=== PATIENT | female | born 1975 | race Caucasian/White ===

== ENCOUNTER 2016-03-12 08:30 | Emergency (ER) | payer OTHER ==
[~2016-03-12 08:30] MED LIST: ACET50TA PO; IBUP60TA PO; TUMS500C PO
[2016-03-12 09:42] LABS: MEAN CORPUSCULAR HEMOGLOBIN 30.5 pg (27.0-33.0); MEAN CORPUSCULAR HGB CONC 33.4 g/dl (32.0-36.5); MEAN CORPUSCULAR VOLUME 91.3 fl (80.0-96.0); RED CELL DISTRIBUTION WIDTH 12.4 % (11.5-14.5); WHITE BLOOD COUNT 9.7 K/mm3 (4.0-10.0)
--- NOTE | 2016-03-12 10:15 | REP ---
PELVIC ULTRASOUND: 03/12/2016 Performed transabdominally and transvaginally. INDICATION: Vaginal bleeding for 8 days, history of left-sided ectopic. Date of last menstrual period: " in January". The patient is G6, P3, one miscarriage, one left-sided ectopic. The uterus measures 7.8 x 4.1 x 5.6 cm. Endometrium 15 mm in thickness. There is no intrauterine gestational sac, pole or yolk sac at this time. The endometrium is thickened 15 mm in depth. The right ovary measures 3.6 x 2.6 x 3.2 cm and contains a 1.4 cm hypoechoic hemorrhagic follicle. The left ovary measures 2.9 x 2.1 x 2.9 cm and contains a few small follicles. Perfusion is noted to the bilateral ovaries. There are no adnexal masses identified. There is no free fluid in the cul-de-sac. IMPRESSION: Endometrium is thickened measuring 15 mm in depth. There is no intrauterine gestational sac or pole. Differential diagnosis at this time includes early intrauterine , missed ; cannot exclude ectopic . The patient states a home test was positive, however, the serum beta hCG was not drawn at the time of exam. Recommend correlation with serial Quantitative BHCG and follow up pelvic Ultrasound to insure a viable IUP. Hemorrhagic 1.4 cm dominant right ovarian follicle. Unremarkable left ovary. No ovarian torsion bilaterally. MTDD
--- NOTE | 2016-03-12 12:27 | EDDOCDS ---
Physician Documentation [facility] Name: Kelli Zhang Age: 40 yrs Sex: Female : 1975 Arrival Date: 03/12/2016 Time: 08:30 Bed 7 Private MD: Disposition: 03/12/16 12:00 Discharged to Home/Self Care. Impression: Threatened . - Condition is Stable. - Discharge Instructions: Threatened Miscarriage, Threatened Miscarriage, [id number]. - Medication Reconciliation, Local Pharmacy Hours form. - Follow up: Yves Cabrera; When: Call to arrange an appointment. - Problem is new. - Symptoms are unchanged. - Notes: return for vaginal bleeding saturating more than one pad per hour, increasing abdominal pain, worsening symptoms or other concerns Historical: - Allergies: no known allergies; - Home Meds: 1. none - PMHx: none; - PSHx: LEEP Procedure; - Social history: Smoking status: Patient uses tobacco products, light tobacco smoker. No barriers to communication noted, The patient speaks fluent [place], Speaks appropriately for age. - Family history: Not pertinent. - : The pt / caregiver states he / she is not on anticoagulants. Home medication list is obtained from the patient. - Exposure Risk Screening:: None identified. 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 8 in. (172.72 cm) (R); Pain 4/10; 11:39 BP 103 / 71; Pulse 62; Resp 18; Temp 99.0; Pulse Ox 99% on R/A; Pain 4/10; rn1 12:22 BP 120 / 75; Pulse 75; Resp 16; Temp 98.4; Pulse Ox 97% on R/A; Pain 5/10; jf3 08:38 Body Mass Index 29.65 (88.45 kg, 172.72 cm) mlb1 MDM: 08:49 Set up pelvic ordered. sd1 08:49 CBC Ordered. EDMS 08:49 Hcg, Serum Quantitative Ordered. EDMS 08:49 GC & Chlamydia Amplification Ordered. EDMS 08:49 Wet Prep Ordered. EDMS 08:49 Type & Screen Ordered. EDMS 08:56 US 1st trimester Ordered. EDMS 09:23 TRANSVAGINAL US Ordered. EDMS 09:23 DUPLEX SCAN LIMITED (DOPPLER) Ordered. EDMS 10:01 Financial registration complete. lg 10:02 [facility] Payment Agreement was scanned into [employer] and attached to record. lg 10:44 CBC Reviewed. sd1 10:44 Hcg, Serum Quantitative Reviewed. sd1 10:44 US 1st trimester Reviewed. sd1 11:00 -RhoGAM Ultra-Filtered Plus 300 mcg IM once ordered. sd1 11:01 Draw Rhogam Ordered. EDMS 11:05 Type & Screen Reviewed. sd1 Administered Medications: 11:26 Drug: -RhoGAM Ultra-Filtered Plus 300 mcg [RhoGAM Ultra-Filtered PLUS 1,500 unit (300 jf3 mcg) intramuscular syringe (300 mcg)] Route: IM; Site: right deltoid; Signatures: Dispatcher [employer] EDND Frieda Burch MD MD sd1 [address], Chava Reg lg Lasha Haas, RN RN mlb1 Milla Aranda,ANDREW RN kc3 Boby Brownlee,RN RN jf3 The chart was reviewed and I authenticate all verbal orders and agree with the evaluation and treatment provided.Attachments: 10:02 [facility] Payment Agreement lg MTDD
--- NOTE | 2016-03-12 12:27 | EDDOCDS ---
Nurse's Notes [facility] Name: Kelli Zhang Age: 40 yrs Sex: Female : 1975 Arrival Date: 03/12/2016 Time: 08:30 Bed 7 Private MD: Diagnosis: Threatened Presentation: 03/12 08:36 Presenting complaint: Patient states: Positive test at home Wednesday, mlb1 cramping and bleeding began 8 days ago. Risk factors: The patient reports no loss of conciousness prior to arrival. This patient has not had a hysterectomy. This patient has not begun menopause. Adult Sepsis Screening: The patient does not have new or worsening altered mentation. Patient's respiratory rate is less than 22. Systolic blood pressure is greater than 100. Patient has a qSOFA score of 0- Negative Sepsis Screen. Suicide/Homicide risk assessment- the patient denies having any suicidal and/or homicidal ideations and does not present with any other emotional, behavioral or mental health complaints. Status: Patient is not a customer services manager or dependent. Transition of care: patient was not received from another setting of care. 08:36 Acuity: ALYSE Level 3 mlb1 08:36 Method Of Arrival: Walkin/Carried/Asstd mlb1 Triage Assessment: 08:38 General: Appears in no apparent distress, Behavior is appropriate for age, cooperative. mlb1 Pain: Location: suprapubic area Pain currently is 4 out of 10 on a pain scale. Quality of pain is described as crampy. Pt Declines HIV testing. : Reports vaginal bleeding that is light flow. 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 none - PMHx: none; - PSHx: LEEP Procedure; - Social history: Smoking status: Patient uses tobacco products, light tobacco smoker. No barriers to communication noted, The patient speaks fluent Mauritian, Speaks appropriately for age. - Family history: Not pertinent. - : The pt / caregiver states he / she is not on anticoagulants. Home medication list is obtained from the patient. - Exposure Risk Screening:: None identified. Screenin:05 Screening information is obtained from the patient. Fall risk: No risks identified. kc3 Assistance ADL's: requires no assistance with activities of daily living. Abuse/DV Screen: The patient / caregiver reports he/she is: not in a situation that causes fear, pain or injury. Nutritional screening: No deficits noted. Advance Directives: Currently, there is no health care proxy. home support is adequate. Assessment: 09:20 General: Appears in no apparent distress, comfortable, Behavior is appropriate for age, kc3 cooperative. Neurological: Level of Consciousness is awake, alert, obeys commands, Oriented to person, place, time. Respiratory: Airway is patent Respiratory effort is even, unlabored. : Reports cramping vaginal bleeding that is bright red moderate flow. Derm: Skin is pink, warm & dry. 11:02 General: Appears in no apparent distress, Behavior is appropriate for age. Respiratory: jjr No deficits noted. : Vaginal discharge is bloody. Derm: No deficits noted. 11:35 Adult Sepsis Screening: The patient does not have new or worsening altered mentation. jf3 Patient's respiratory rate is less than 22. Systolic blood pressure is greater than 100. Patient has a qSOFA score of 0- Negative Sepsis Screen. General: Appears in no apparent distress, comfortable, Behavior is appropriate for age, cooperative. Pain: Location: suprapubic area Pain currently is 4 out of 10 on a pain scale. Neurological: Level of Consciousness is awake, alert, Oriented to person, place, time. Cardiovascular: Capillary refill < 3 seconds Heart tones S1 S2 present Chest pain is denied. Respiratory: Airway is patent Respiratory effort is even, unlabored, Respiratory pattern is regular, symmetrical, Breath sounds are clear bilaterally. Respiratory: Denies shortness of breath at rest. GI: Abdomen is non- distended Bowel sounds present X 4 quads. Abd is soft and non tender X 4 quads. Denies diarrhea, nausea, vomiting. Derm: Skin is pink, warm & dry. 12:25 General: Appears in no apparent distress, comfortable, Behavior is appropriate for age, jf3 cooperative. Pain: Pain currently is 5 out of 10 on a pain scale. Neurological: Level of Consciousness is awake, alert, Oriented to person, place, time. Cardiovascular: Capillary refill < 3 seconds. Respiratory: Airway is patent Respiratory effort is even, unlabored, Respiratory pattern is regular, symmetrical. Derm: Skin is pink, warm & dry. Vital Signs: 08:38 BP 128 / 79; Pulse 80; Resp 16; Temp 97.6(TE); Pulse Ox 99% on R/A; Weight 88.45 kg mlb1 (R); Height 5 ft. 8 in. (172.72 cm) (R); Pain 4/10; 11:39 BP 103 / 71; Pulse 62; Resp 18; Temp 99.0; Pulse Ox 99% on R/A; Pain 4/10; rn1 12:22 BP 120 / 75; Pulse 75; Resp 16; Temp 98.4; Pulse Ox 97% on R/A; Pain 5/10; jf3 08:38 Body Mass Index 29.65 (88.45 kg, 172.72 cm) mlb1 Vitals: 08:38 Log In Time: March 12, 2016 at 08:29. mlb1 ED Course: 08:31 [address] Reg. lg 08:31 Patient moved to Waiting lg 08:36 Patient visited by Lasha Haas RN. mlb1 08:37 Triage Initiated mlb1 08:42 Patient moved to 7 mlb1 08:48 Frieda Burch MD is Attending Physician. sd1 08:49 Patient visited by Frieda Burch MD. sd1 09:03 Patient moved to Ultrasound am10 09:19 Patient moved to 7 kc3 09:20 Patient visited by Milla Aranda RN. kc3 09:41 Patient visited by Milla Aranda RN. kc3 09:41 Inserted saline lock: 20 gauge in right antecubital area and blood collected. The kc3 patient tolerated the procedure well. Labs drawn. (by ED staff). Sent per order to lab. 09:58 Patient name changed from Kelli\\S\\Alka\\S\\Zhang\\S\\ to Kelli\\S\\A\\S\\Zhang. EDMS 10:02 [facility] Payment Agreement was scanned into [employer] and attached to record. lg 10:06 The patient / caregiver is instructed regarding the plan of care and ED course. kc3 10:07 Patient visited by Milla Aranda,ANDREW. kc3 10:17 Patient visited by Esperanza Majano,ANDREW. ead 10:33 US 1st trimester Returned. EDMS 11:02 Wet Prep Sent. jjr 11:02 GC & Chlamydia Amplification Sent. jjr 11:02 Assist provider with pelvic exam: Set up pelvic tray. Specimens sent to lab. Performed jjr by Frieda Burch MD Patient tolerated well. 11:03 Patient visited by Maritza Bhatia RN. jjr 11:05 Draw Rhogam Sent. jf3 11:30 Patient visited by Bonilla Holcomb PCA. jlf 11:59 Yves Cabrera MD is Referral Physician. sd1 12:22 Discontinued IV lock intact, bleeding controlled, pressure dressing applied, No jf3 redness/swelling at site. Administered Medications: 11:26 Drug: -RhoGAM Ultra-Filtered Plus 300 mcg [RhoGAM Ultra-Filtered PLUS 1,500 unit (300 jf3 mcg) intramuscular syringe (300 mcg)] Route: IM; Site: right deltoid; Order Results: Lab Order: CBC; SPEC'M 03/12/16 09:22 Test: WHITE BLOOD COUNT; Value: 9.7; Range: 4.0-10.0; Units: K/mm3; Status: F Test: RED BLOOD COUNT; Value: 4.34; Range: 4.00-5.40; Units: M/mm3; Status: F Test: HEMOGLOBIN; Value: 13.2; Range: 12.0-16.0; Units: g/dl; Status: F Test: HEMATOCRIT; Value: 39.6; Range: 36.0-47.0; Units: %; Status: F Test: MEAN CORPUSCULAR VOLUME; Value: 91.3; Range: 80.0-96.0; Units: fl; Status: F Test: MEAN CORPUSCULAR HEMOGLOBIN; Value: 30.5; Range: 27.0-33.0; Units: pg; Status: F Test: MEAN CORPUSCULAR HGB CONC; Value: 33.4; Range: 32.0-36.5; Units: g/dl; Status: F Test: RED CELL DISTRIBUTION WIDTH; Value: 12.4; Range: 11.5-14.5; Units: %; Status: F Test: PLATELET COUNT, AUTOMATED; Value: 337; Range: 150-450; Units: k/mm3; Status: F Lab Order: Type & Screen; SPEC'M 03/12/16 10:16 Test: BLOOD TYPE; Value: A NEG; Status: F Test: AB SCREEN (INDIRECT FRANK)GEL; Value: NEGATIVE; Status: F Lab Order: Hcg, Serum Quantitative; SPEC'M 03/12/16 09:22 Test: HCG, SERUM QUANTITATIVE; Value: 289; Units: MIU/ML; Status: F Test Note: ; GESTATIONAL AGE APPROXIMATE HCG RANGE (MIU/ML) 0.2-1 WEEK 5-50 1-2 WEEKS 50-500 2-3 WEEKS 100-5,000 3-4 WEEKS 500-10,000 4-5 WEEKS 1,000-50,000 5-6 WEEKS 10,000-100,000 6-8 WEEKS 15,000-200,000 2-3 MONTHS 10,000-100,000 NON FEMALES LESS THAN 3.0 Patient samples may contain human heterophilic antibodies that could react with immunoassays to give falsely elevated or depressed results. This assay has been designed to minimize interference from heterophilic antibodies. Elevated hCG levels have also been associated with trophoblastic disease and nontrophoblastic neoplasms. The possibility of having these diseases should be considered before a diagnosis of is made. This test is not intended for use as a surrogate marker for aiding in the diagnosis or monitoring the treatment of cancer patients. Siemens Capriza methodology. Lab Order: Wet Prep; SPEC'M 03/12/16 11:00 Test: WET PREP; Value: WET PREP RESULT; Status: F Test: WET PREP; Value: MODERATE EPITHELIAL CELLS PRESENT; Status: F Test: WET PREP; Value: MODERATE RBC; Status: F Test: WET PREP; Value: FEW WBC; Status: F Test: WET PREP; Value: MANY LONG RODS PRESENT; Status: F Radiology Order: US 1st trimester Test: US 1st trimester REASON FOR EXAMINATION: VB LLQ pain h/o ectopic; ; PELVIC ULTRASOUND: 03/12/2016; ; Performed transabdominally and transvaginally.; ; INDICATION: Vaginal bleeding for 8 days, history of left-sided ectopic.; ; Date of last menstrual period: " in January". The patient is G6, P3, one; miscarriage, one left-sided ectopic.; ; The uterus measures 7.8 x 4.1 x 5.6 cm. Endometrium 15 mm in thickness. There is; no intrauterine gestational sac, pole or yolk sac at this time. The; endometrium is thickened 15 mm in depth.; ; The right ovary measures 3.6 x 2.6 x 3.2 cm and contains a 1.4 cm hypoechoic; hemorrhagic follicle. The left ovary measures 2.9 x 2.1 x 2.9 cm and contains a; few small follicles. Perfusion is noted to the bilateral ovaries.; ; There are no adnexal masses identified. There is no free fluid in the; cul-de-sac.; ; IMPRESSION:; Endometrium is thickened measuring 15 mm in depth. There is no intrauterine; gestational sac or pole. Differential diagnosis at this time includes early; intrauterine , missed ; cannot exclude ectopic . The; patient states a home test was positive, however, the serum beta hCG; was not drawn at the time of exam.; ; Hemorrhagic 1.4 cm dominant right ovarian follicle. Unremarkable left ovary. No; ovarian torsion bilaterally.; ; ; ; Unreviewed; Outcome: 10:06 Ultrasound Study completed. kc3 12:00 Discharge ordered by Provider. sd1 12:26 Discharge Assessment: Patient awake, alert and oriented x 3. No cognitive and/or jf3 functional deficits noted. Patient verbalized understanding of disposition instructions. patient administered narcotics - no. The following High Risk Discharge criteria are identified: None. Discharged to home ambulatory. Condition: good. Discharge instructions given to patient, Instructed on discharge instructions, follow up and referral plans. Demonstrated understanding of instructions, Pt was receptive of discharge instructions/ teaching. Property :Personal belongings accompany Pt. 12:26 Patient left the ED. jf3 Signatures: Dispatcher [employer] EDMA Frieda Burch MD MD sd1 [address], Chava Reg Lasha Gordon, RN RN mlb1 Gini Feldman am10 Maritza Bhatia, RN RN Bonilla Maravilla, MONICA THERMO CEMENTING FOLDER OPERATOR jlf Esperanza Majano,RN RN Gareth Sarmiento rn1 Milla Aranda,ANDREW RN kc3 Boby Brownlee,RN RN jf3 MTDD
--- NOTE | 2016-03-14 13:28 | EDDOCDS ---
Nurse's Notes [facility] Name: Kelli Zhang Age: 40 yrs Sex: Female : 1975 Arrival Date: 03/12/2016 Time: 08:30 Bed 7 Private MD: Diagnosis: Threatened Presentation: 03/12 08:36 Presenting complaint: Patient states: Positive test at home Wednesday, mlb1 cramping and bleeding began 8 days ago. Risk factors: The patient reports no loss of conciousness prior to arrival. This patient has not had a hysterectomy. This patient has not begun menopause. Adult Sepsis Screening: The patient does not have new or worsening altered mentation. Patient's respiratory rate is less than 22. Systolic blood pressure is greater than 100. Patient has a qSOFA score of 0- Negative Sepsis Screen. Suicide/Homicide risk assessment- the patient denies having any suicidal and/or homicidal ideations and does not present with any other emotional, behavioral or mental health complaints. Status: Patient is not a financial services technician or dependent. Transition of care: patient was not received from another setting of care. 08:36 Acuity: ALYSE Level 3 mlb1 08:36 Method Of Arrival: Walkin/Carried/Asstd mlb1 Triage Assessment: 08:38 General: Appears in no apparent distress, Behavior is appropriate for age, cooperative. mlb1 Pain: Location: suprapubic area Pain currently is 4 out of 10 on a pain scale. Quality of pain is described as crampy. Pt Declines HIV testing. : Reports vaginal bleeding that is light flow. 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 none - PMHx: none; - PSHx: LEEP Procedure; - Social history: Smoking status: Patient uses tobacco products, light tobacco smoker. No barriers to communication noted, The patient speaks fluent Danish, Speaks appropriately for age. - Family history: Not pertinent. - : The pt / caregiver states he / she is not on anticoagulants. Home medication list is obtained from the patient. - Exposure Risk Screening:: None identified. Screenin:05 Screening information is obtained from the patient. Fall risk: No risks identified. kc3 Assistance ADL's: requires no assistance with activities of daily living. Abuse/DV Screen: The patient / caregiver reports he/she is: not in a situation that causes fear, pain or injury. Nutritional screening: No deficits noted. Advance Directives: Currently, there is no health care proxy. home support is adequate. Assessment: 09:20 General: Appears in no apparent distress, comfortable, Behavior is appropriate for age, kc3 cooperative. Neurological: Level of Consciousness is awake, alert, obeys commands, Oriented to person, place, time. Respiratory: Airway is patent Respiratory effort is even, unlabored. : Reports cramping vaginal bleeding that is bright red moderate flow. Derm: Skin is pink, warm & dry. 11:02 General: Appears in no apparent distress, Behavior is appropriate for age. Respiratory: jjr No deficits noted. : Vaginal discharge is bloody. Derm: No deficits noted. 11:35 Adult Sepsis Screening: The patient does not have new or worsening altered mentation. jf3 Patient's respiratory rate is less than 22. Systolic blood pressure is greater than 100. Patient has a qSOFA score of 0- Negative Sepsis Screen. General: Appears in no apparent distress, comfortable, Behavior is appropriate for age, cooperative. Pain: Location: suprapubic area Pain currently is 4 out of 10 on a pain scale. Neurological: Level of Consciousness is awake, alert, Oriented to person, place, time. Cardiovascular: Capillary refill < 3 seconds Heart tones S1 S2 present Chest pain is denied. Respiratory: Airway is patent Respiratory effort is even, unlabored, Respiratory pattern is regular, symmetrical, Breath sounds are clear bilaterally. Respiratory: Denies shortness of breath at rest. GI: Abdomen is non- distended Bowel sounds present X 4 quads. Abd is soft and non tender X 4 quads. Denies diarrhea, nausea, vomiting. Derm: Skin is pink, warm & dry. 12:25 General: Appears in no apparent distress, comfortable, Behavior is appropriate for age, jf3 cooperative. Pain: Pain currently is 5 out of 10 on a pain scale. Neurological: Level of Consciousness is awake, alert, Oriented to person, place, time. Cardiovascular: Capillary refill < 3 seconds. Respiratory: Airway is patent Respiratory effort is even, unlabored, Respiratory pattern is regular, symmetrical. Derm: Skin is pink, warm & dry. Vital Signs: 08:38 BP 128 / 79; Pulse 80; Resp 16; Temp 97.6(TE); Pulse Ox 99% on R/A; Weight 88.45 kg mlb1 (R); Height 5 ft. 8 in. (172.72 cm) (R); Pain 4/10; 11:39 BP 103 / 71; Pulse 62; Resp 18; Temp 99.0; Pulse Ox 99% on R/A; Pain 4/10; rn1 12:22 BP 120 / 75; Pulse 75; Resp 16; Temp 98.4; Pulse Ox 97% on R/A; Pain 5/10; jf3 08:38 Body Mass Index 29.65 (88.45 kg, 172.72 cm) mlb1 Vitals: 08:38 Log In Time: March 12, 2016 at 08:29. mlb1 ED Course: 08:31 [address]a [address] Reg. lg 08:31 Patient moved to Waiting lg 08:36 Patient visited by Lasha Haas RN. mlb1 08:37 Triage Initiated mlb1 08:42 Patient moved to 7 mlb1 08:48 Frieda Burch MD is Attending Physician. sd1 08:49 Patient visited by Frieda Burch MD. sd1 09:03 Patient moved to Ultrasound am10 09:19 Patient moved to 7 kc3 09:20 Patient visited by Milla Aranda RN. kc3 09:41 Patient visited by Milla Aranda RN. kc3 09:41 Inserted saline lock: 20 gauge in right antecubital area and blood collected. The kc3 patient tolerated the procedure well. Labs drawn. (by ED staff). Sent per order to lab. 09:58 Patient name changed from Kelli\\S\\Alka\\S\\Zhang\\S\\ to Kelli\\S\\A\\S\\Zhang. EDMS 10:02 [facility] Payment Agreement was scanned into [employer] and attached to record. lg 10:06 The patient / caregiver is instructed regarding the plan of care and ED course. kc3 10:07 Patient visited by Milla Aranda,ANDREW. kc3 10:17 Patient visited by Esperanza Majano,ANDREW. ead 10:33 US 1st trimester Returned. EDMS 11:02 Wet Prep Sent. jjr 11:02 GC & Chlamydia Amplification Sent. jjr 11:02 Assist provider with pelvic exam: Set up pelvic tray. Specimens sent to lab. Performed jjr by Frieda Burch MD Patient tolerated well. 11:03 Patient visited by Maritza hBatia RN. jjr 11:05 Draw Rhogam Sent. jf3 11:30 Patient visited by Bonilla Holcomb PCA. jlf 11:59 Yves Cabrera MD is Referral Physician. sd1 12:22 Discontinued IV lock intact, bleeding controlled, pressure dressing applied, No jf3 redness/swelling at site. 14:52 T-Sheet-- Draft Copy was scanned into [employer] and attached to record. gb 22:03 US 1st trimester Returned. EDMS Administered Medications: 11:26 Drug: -RhoGAM Ultra-Filtered Plus 300 mcg [RhoGAM Ultra-Filtered PLUS 1,500 unit (300 jf3 mcg) intramuscular syringe (300 mcg)] Route: IM; Site: right deltoid; Order Results: Lab Order: CBC; SPEC'M 03/12/16 09:22 Test: WHITE BLOOD COUNT; Value: 9.7; Range: 4.0-10.0; Units: K/mm3; Status: F Test: RED BLOOD COUNT; Value: 4.34; Range: 4.00-5.40; Units: M/mm3; Status: F Test: HEMOGLOBIN; Value: 13.2; Range: 12.0-16.0; Units: g/dl; Status: F Test: HEMATOCRIT; Value: 39.6; Range: 36.0-47.0; Units: %; Status: F Test: MEAN CORPUSCULAR VOLUME; Value: 91.3; Range: 80.0-96.0; Units: fl; Status: F Test: MEAN CORPUSCULAR HEMOGLOBIN; Value: 30.5; Range: 27.0-33.0; Units: pg; Status: F Test: MEAN CORPUSCULAR HGB CONC; Value: 33.4; Range: 32.0-36.5; Units: g/dl; Status: F Test: RED CELL DISTRIBUTION WIDTH; Value: 12.4; Range: 11.5-14.5; Units: %; Status: F Test: PLATELET COUNT, AUTOMATED; Value: 337; Range: 150-450; Units: k/mm3; Status: F Lab Order: Type & Screen; SPEC'Anthony 03/12/16 10:16 Test: BLOOD TYPE; Value: A NEG; Status: F Test: AB SCREEN (INDIRECT FRANK)GEL; Value: NEGATIVE; Status: F Lab Order: Hcg, Serum Quantitative; [facility] 03/12/16 09:22 Test: HCG, SERUM QUANTITATIVE; Value: 289; Units: MIU/ML; Status: F Test Note: ; GESTATIONAL AGE APPROXIMATE HCG RANGE (MIU/ML) 0.2-1 WEEK 5-50 1-2 WEEKS 50-500 2-3 WEEKS 100-5,000 3-4 WEEKS 500-10,000 4-5 WEEKS 1,000-50,000 5-6 WEEKS 10,000-100,000 6-8 WEEKS 15,000-200,000 2-3 MONTHS 10,000-100,000 NON FEMALES LESS THAN 3.0 Patient samples may contain human heterophilic antibodies that could react with immunoassays to give falsely elevated or depressed results. This assay has been designed to minimize interference from heterophilic antibodies. Elevated hCG levels have also been associated with trophoblastic disease and nontrophoblastic neoplasms. The possibility of having these diseases should be considered before a diagnosis of is made. This test is not intended for use as a surrogate marker for aiding in the diagnosis or monitoring the treatment of cancer patients. [employer] [place] methodology. Lab Order: GC & Chlamydia Amplification; SPEC'M 03/12/16 11:01 Test: CHLAMYDIA DNA AMPLIFICATION; Value: NEGATIVE; Range: NEGATIVE; Status: F Test: GC DNA AMPLIFICATION; Value: NEGATIVE; Range: NEGATIVE; Status: F Lab Order: Wet Prep; SPEC'M 03/12/16 11:00 Test: WET PREP; Value: WET PREP RESULT; Status: F Test: WET PREP; Value: MODERATE EPITHELIAL CELLS PRESENT; Status: F Test: WET PREP; Value: MODERATE RBC; Status: F Test: WET PREP; Value: FEW WBC; Status: F Test: WET PREP; Value: MANY LONG RODS PRESENT; Status: F Radiology Order: US 1st trimester Test: US 1st trimester REASON FOR EXAMINATION: VB LLQ pain h/o ectopic; ; PELVIC ULTRASOUND: 03/12/2016; ; Performed transabdominally and transvaginally.; ; INDICATION: Vaginal bleeding for 8 days, history of left-sided ectopic.; ; Date of last menstrual period: " in January". The patient is G6, P3, one; miscarriage, one left-sided ectopic.; ; The uterus measures 7.8 x 4.1 x 5.6 cm. Endometrium 15 mm in thickness. There is; no intrauterine gestational sac, pole or yolk sac at this time. The; endometrium is thickened 15 mm in depth.; ; The right ovary measures 3.6 x 2.6 x 3.2 cm and contains a 1.4 cm hypoechoic; hemorrhagic follicle. The left ovary measures 2.9 x 2.1 x 2.9 cm and contains a; few small follicles. Perfusion is noted to the bilateral ovaries.; ; There are no adnexal masses identified. There is no free fluid in the; cul-de-sac.; ; IMPRESSION:; Endometrium is thickened measuring 15 mm in depth. There is no intrauterine; gestational sac or pole. Differential diagnosis at this time includes; early; intrauterine , missed ; cannot exclude ectopic . The; patient states a home test was positive, however, the serum beta hCG; was not drawn at the time of exam.; Recommend correlation with serial Quantitative BHCG and follow up pelvic; Ultrasound to insure a viable IUP.; ; Hemorrhagic 1.4 cm dominant right ovarian follicle. Unremarkable left ovary. No; ovarian torsion bilaterally.; ; ; ; MTDD Outcome: 10:06 Ultrasound Study completed. kc3 12:00 Discharge ordered by Provider. sd1 12:26 Discharge Assessment: Patient awake, alert and oriented x 3. No cognitive and/or jf3 functional deficits noted. Patient verbalized understanding of disposition instructions. patient administered narcotics - no. The following High Risk Discharge criteria are identified: None. Discharged to home ambulatory. Condition: good. Discharge instructions given to patient, Instructed on discharge instructions, follow up and referral plans. Demonstrated understanding of instructions, Pt was receptive of discharge instructions/ teaching. Property :Personal belongings accompany Pt. 12:26 Patient left the ED. jf3 Signatures: Dispatcher [employer] EDMS Frieda Burch MD MD sd1 Lu Zamora, Reg Reg gb Cora Street, Reg Reg lg Lasha Haas RN RN mlb1 Gini Feldman am10 Maritza Bhatia, RN RN jjr Zhang, Bonilla, CUSTOMER ACCOUNT TECHNICIAN CUSTOMER ACCOUNT TECHNICIAN jlf Esperanza Majano,RN RN Gareth Sarmiento rn1 Milla Aranda,RN RN kc3 Boby Brownlee,RN RN jf3 Chart Complete MTDD
--- NOTE | 2016-03-14 13:28 | EDDOCDS ---
Physician Documentation [facility] Name: Kelli Zhang Age: 40 yrs Sex: Female : 1975 Arrival Date: 03/12/2016 Time: 08:30 Bed 7 Private MD: Disposition: 03/12/16 12:00 Discharged to Home/Self Care. Impression: Threatened . - Condition is Stable. - Discharge Instructions: Threatened Miscarriage, Threatened Miscarriage, [id number]. - Medication Reconciliation, Local Pharmacy Hours form. - Follow up: Yves Cabrera; When: Call to arrange an appointment. - Problem is new. - Symptoms are unchanged. - Notes: return for vaginal bleeding saturating more than one pad per hour, increasing abdominal pain, worsening symptoms or other concerns Historical: - Allergies: no known allergies; - Home Meds: 1. none - PMHx: none; - PSHx: LEEP Procedure; - Social history: Smoking status: Patient uses tobacco products, light tobacco smoker. No barriers to communication noted, The patient speaks fluent Omani, Speaks appropriately for age. - Family history: Not pertinent. - : The pt / caregiver states he / she is not on anticoagulants. Home medication list is obtained from the patient. - Exposure Risk Screening:: None identified. 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 8 in. (172.72 cm) (R); Pain 4/10; 11:39 BP 103 / 71; Pulse 62; Resp 18; Temp 99.0; Pulse Ox 99% on R/A; Pain 4/10; rn1 12:22 BP 120 / 75; Pulse 75; Resp 16; Temp 98.4; Pulse Ox 97% on R/A; Pain 5/10; jf3 08:38 Body Mass Index 29.65 (88.45 kg, 172.72 cm) mlb1 MDM: 08:49 Set up pelvic ordered. sd1 08:49 CBC Ordered. EDMS 08:49 Hcg, Serum Quantitative Ordered. EDMS 08:49 GC & Chlamydia Amplification Ordered. EDMS 08:49 Wet Prep Ordered. EDMS 08:49 Type & Screen Ordered. EDMS 08:56 US 1st trimester Ordered. EDMS 09:23 TRANSVAGINAL US Ordered. EDMS 09:23 DUPLEX SCAN LIMITED (DOPPLER) Ordered. EDMS 10:01 Financial registration complete. lg 10:02 [facility] Payment Agreement was scanned into [email or web address] and attached to record. lg 10:44 CBC Reviewed. sd1 10:44 Hcg, Serum Quantitative Reviewed. sd1 10:44 US 1st trimester Reviewed. sd1 11:00 -RhoGAM Ultra-Filtered Plus 300 mcg IM once ordered. sd1 11:01 Draw Rhogam Ordered. EDMS 11:05 Type & Screen Reviewed. sd1 12:58 Type & Screen Reviewed. sd1 12:58 Wet Prep Reviewed. sd1 14:52 T-Sheet-- Draft Copy was scanned into [employer] and attached to record. gb Administered Medications: 11:26 Drug: -RhoGAM Ultra-Filtered Plus 300 mcg [RhoGAM Ultra-Filtered PLUS 1,500 unit (300 jf3 mcg) intramuscular syringe (300 mcg)] Route: IM; Site: right deltoid; Signatures: Dispatcher [employer] EDDC Frieda Burch MD MD sd1 Lu Zamora, Reg Reg Cora Turner, Reg Reg lg Lasha Haas RN RN mlb1 Milla Aranda,ANDREW RN kc3 Boby Brownlee,ANDREW RN jf3 The chart was reviewed and I authenticate all verbal orders and agree with the evaluation and treatment provided.Attachments: 10:02 [facility] Payment Agreement lg 14:52 T-Sheet-- Draft Copy gb Chart Complete MTDD
--- NOTE | 2016-03-14 13:28 | EDDOCDS ---
Physician Documentation [facility] Name: Kelli Zhang Age: 40 yrs Sex: Female : 1975 Arrival Date: 03/12/2016 Time: 08:30 Bed 7 Private MD: Disposition: 03/12/16 12:00 Discharged to Home/Self Care. Impression: Threatened . - Condition is Stable. - Discharge Instructions: Threatened Miscarriage, Threatened Miscarriage, [id number]. - Medication Reconciliation, Local Pharmacy Hours form. - Follow up: Yves Cabrera; When: Call to arrange an appointment. - Problem is new. - Symptoms are unchanged. - Notes: return for vaginal bleeding saturating more than one pad per hour, increasing abdominal pain, worsening symptoms or other concerns Historical: - Allergies: no known allergies; - Home Meds: 1. none - PMHx: none; - PSHx: LEEP Procedure; - Social history: Smoking status: Patient uses tobacco products, light tobacco smoker. No barriers to communication noted, The patient speaks fluent Cameroonian, Speaks appropriately for age. - Family history: Not pertinent. - : The pt / caregiver states he / she is not on anticoagulants. Home medication list is obtained from the patient. - Exposure Risk Screening:: None identified. 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 8 in. (172.72 cm) (R); Pain 4/10; 11:39 BP 103 / 71; Pulse 62; Resp 18; Temp 99.0; Pulse Ox 99% on R/A; Pain 4/10; rn1 12:22 BP 120 / 75; Pulse 75; Resp 16; Temp 98.4; Pulse Ox 97% on R/A; Pain 5/10; jf3 08:38 Body Mass Index 29.65 (88.45 kg, 172.72 cm) mlb1 MDM: 08:49 Set up pelvic ordered. sd1 08:49 CBC Ordered. EDMS 08:49 Hcg, Serum Quantitative Ordered. EDMS 08:49 GC & Chlamydia Amplification Ordered. EDMS 08:49 Wet Prep Ordered. EDMS 08:49 Type & Screen Ordered. EDMS 08:56 US 1st trimester Ordered. EDMS 09:23 TRANSVAGINAL US Ordered. EDMS 09:23 DUPLEX SCAN LIMITED (DOPPLER) Ordered. EDMS 10:01 Financial registration complete. lg 10:02 [facility] Payment Agreement was scanned into [employer] and attached to record. lg 10:44 CBC Reviewed. sd1 10:44 Hcg, Serum Quantitative Reviewed. sd1 10:44 US 1st trimester Reviewed. sd1 11:00 -RhoGAM Ultra-Filtered Plus 300 mcg IM once ordered. sd1 11:01 Draw Rhogam Ordered. EDMS 11:05 Type & Screen Reviewed. sd1 12:58 Type & Screen Reviewed. sd1 12:58 Wet Prep Reviewed. sd1 14:52 T-Sheet-- Draft Copy was scanned into [employer] and attached to record. gb Administered Medications: 11:26 Drug: -RhoGAM Ultra-Filtered Plus 300 mcg [RhoGAM Ultra-Filtered PLUS 1,500 unit (300 jf3 mcg) intramuscular syringe (300 mcg)] Route: IM; Site: right deltoid; Signatures: Dispatcher [employer] EDMA Frieda Burch MD MD sd1 Lu Zamora, Reg Reg Cora Turner, Reg Reg lg Lasha Haas RN RN mlb1 Milla Aranda,ANDREW RN kc3 Boby Brownlee,ANDREW RN jf3 The chart was reviewed and I authenticate all verbal orders and agree with the evaluation and treatment provided.Attachments: 10:02 [facility] Payment Agreement lg 14:52 T-Sheet-- Draft Copy gb Chart Complete MTDD
== END 2016-03-12 12:26 | disposition home or self-care (01) ==
LOC: M ED 08:30
DX: O20.0 Threatened abortion (principal); Z3A.00 Weeks of gestation of pregnancy not specified; O99.331 Smoking (tobacco) complicating pregnancy, first trimester
CPT/HCPCS: 36415; 76801; 76817; 84702; 85027; 86850; 86900; 86901; 87210; 87491; 87591; 93976; 96372; 99285; J2790

== ENCOUNTER 2016-03-14 11:52 | Emergency (ER) | payer OTHER ==
[2016-03-14 12:47] LABS: BASO # 0.2 K/mm3 (0.0-0.2); BASO % 2.1 % (0.0-1.0); EOS # 0.2 K/mm3 (0.0-0.50); EOS % 2.1 % (0.0-3.0); LARGE UNSTAINED CELL # 0.1 K/mm3 (0.0-0.4); LARGE UNSTAINED CELL % 1.4 % (0.0-4.0); LYMPH # 2.4 K/mm3 (1.5-4.5); LYMPH % 23.9 % (24.0-44.0); MEAN CORPUSCULAR HEMOGLOBIN 29.6 pg (27.0-33.0); MEAN CORPUSCULAR HGB CONC 31.4 g/dl (32.0-36.5); MEAN CORPUSCULAR VOLUME 94.2 fl (80.0-96.0); MONO # 0.8 K/mm3 (0.0-0.8); NEUTROPHILS # 5.8 K/mm3 (1.8-7.7); NEUTROPHILS % 62.4 % (36.0-66.0); PLATELET COUNT, AUTOMATED 317 k/mm3 (150-450); RED CELL DISTRIBUTION WIDTH 13.5 % (11.5-14.5); WHITE BLOOD COUNT 9.3 K/mm3 (4.0-10.0)
[2016-03-14 13:07] LABS: ANION GAP 7 MEQ/L (8-16); BLOOD UREA NITROGEN 8 MG/DL (7-18); CARBON DIOXIDE LEVEL 26 MEQ/L (21-32); CHLORIDE LEVEL 110 MEQ/L (98-107); CREATININE FOR GFR 0.87 MG/DL (0.55-1.02); GLOMERULAR FILTRATION RATE > 60.0 (>60); GLUCOSE, FASTING 78 MG/DL (70-105); HCG, SERUM QUANTITATIVE 83 MIU/ML; POTASSIUM SERUM 4.7 MEQ/L (3.5-5.1); SODIUM LEVEL 143 MEQ/L (136-145)
--- NOTE | 2016-03-14 14:17 | EDDOCDS ---
Physician Documentation [facility] Name: Kelli Zhang Age: 40 yrs Sex: Female : 1975 Arrival Date: 03/14/2016 Time: 11:52 Bed TR8 Private MD: NO PRIMARY PHYSICIAN, . Disposition: 03/14/16 14:09 Discharged to Home/Self Care. Impression: Incomplete spontaneous without complication. - Condition is Stable. - Discharge Instructions: Miscarriage. - Medication Reconciliation, Local Pharmacy Hours form. - Follow up: Yves Cabrera MD; When: As previously arranged; Reason: Recheck today's complaints, Continuance of care. Follow up: Emergency Department; When: As needed; Reason: Worsening of conditions, severe bleeding, severe pain. - Problem is new. - Symptoms are unchanged. Historical: - Allergies: no known allergies; - Home Meds: 1. none - PMHx: Ovarian cyst; - PSHx: LEAP; - Social history: Smoking status: Patient uses tobacco products, light tobacco smoker. No barriers to communication noted. - Family history: Not pertinent. - : The pt / caregiver states he / she is not on anticoagulants. Home medication list is obtained from the patient. - Exposure Risk Screening:: None identified. 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 8 in. (172.72 cm) (R); Pain 6/10; 11:55 Body Mass Index 29.65 (88.45 kg, 172.72 cm) mt4 MDM: 12:35 CBC with Diff Ordered. EDMS 12:35 Hcg, Serum Quantitative Ordered. EDMS 12:35 Basic Metabolic Profile Ordered. EDMS 13:41 CBC with Diff Reviewed. ar2 13:41 Basic Metabolic Profile Reviewed. ar2 13:41 Hcg, Serum Quantitative Reviewed. ar2 14:02 [facility] Payment Agreement was scanned into [employer] and attached to record. [facility] 14:[address] [facility] Signatures: Dispatcher [employer] EDCalista DoveRN RN kr3 Adrian Ervin PA-C PA-C ar2 Abigail Garcia RN RN [facility] Mercedes Buckley jls1 The chart was reviewed and I authenticate all verbal orders and agree with the evaluation and treatment provided.Attachments: 14:02 [facility] Payment Agreement jls1 MTDD
--- NOTE | 2016-03-14 14:17 | EDDOCDS ---
Nurse's Notes [facility] Name: Kelli Zhang Age: 40 yrs Sex: Female : 1975 Arrival Date: 03/14/2016 Time: 11:52 Bed TR8 Private MD: NO PRIMARY PHYSICIAN, . Diagnosis: Incomplete spontaneous without complication Presentation: 03/14 12:05 Presenting complaint: Patient states: I was here the other day having a miscarriage, [facility] they wanted me to come back today to get my levels checked but I'm bleeding more and want to be seen, there is also a cyst involved. Risk factors: The patient reports no loss of conciousness prior to arrival. This patient has not had a hysterectomy. This patient has not begun menopause. Adult Sepsis Screening: The patient does not have new or worsening altered mentation. Patient's respiratory rate is less than 22. Systolic blood pressure is greater than 100. Patient has a qSOFA score of 0- Negative Sepsis Screen. Suicide/Homicide risk assessment- the patient denies having any suicidal and/or homicidal ideations and does not present with any other emotional, behavioral or mental health complaints. 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 Transition of care: patient was not received from another setting of care. 12:05 Acuity: ALYSE Level 3 [facility] 12:05 Method Of Arrival: Walkin/Carried/Asstd [facility] Triage Assessment: 12:08 General: Appears in no apparent distress, comfortable, Behavior is appropriate for age, [facility] cooperative. Pain: Location: pelvis Pain currently is 5 out of 10 on a pain scale. HIV screening NA for this visit Offered previously. : Reports vaginal bleeding that is heavy flow. 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 none - PMHx: Ovarian cyst; - PSHx: LEAP; - Social history: Smoking status: Patient uses tobacco products, light tobacco smoker. No barriers to communication noted. - Family history: Not pertinent. - : The pt / caregiver states he / she is not on anticoagulants. Home medication list is obtained from the patient. - Exposure Risk Screening:: None identified. Screenin:15 Screening information is obtained from the patient. Fall risk: No risks identified. kr3 Assistance ADL's: requires no assistance with activities of daily living. Abuse/DV Screen: The patient / caregiver reports he/she is: not in a situation that causes fear, pain or injury. Nutritional screening: No deficits noted. Advance Directives: Currently, there is no health care proxy. home support is adequate. Assessment: 14:15 General: Appears in no apparent distress, comfortable, Behavior is cooperative. kr3 Neurological: No deficits noted. Respiratory: Respiratory effort is even, unlabored. Vital Signs: 11:55 BP 139 / 77 RA Sitting (auto/reg); Pulse 62 RA; Resp 18 S; Temp 97.3(O); Pulse Ox 100% mt4 on R/A; Weight 88.45 kg (R); Height 5 ft. 8 in. (172.72 cm) (R); Pain 6/10; 11:55 Body Mass Index 29.65 (88.45 kg, 172.72 cm) mt4 Vitals: 11:55 Log In Time: March 14, 2016 at 11:52. mt4 ED Course: 11:54 Patient visited by Jacqueline Griffin. mt4 11:54 Patient moved to Waiting mt4 11:55 NO PRIMARY PHYSICIAN, . is Private Physician. mt4 11:57 Patient moved to Pre RCE mt4 12:07 Triage Initiated cjh 12:35 Patient moved to PR1 / 25 kr3 12:41 Patient moved to Pre RCE kr3 12:41 Basic Metabolic Profile Sent. kr3 12:41 Hcg, Serum Quantitative Sent. kr3 12:41 CBC with Diff Sent. kr3 13:06 Patient moved to Triage 2 jf3 13:40 [facility] ar2 13:40 Jean Marie Delacruz MD is Attending Physician. ar2 13:41 Patient visited by Adrian Ervin PA-C. ar2 13:56 Patient visited by Frieda Leal. sew 14:02 [facility] Payment Agreement was scanned into [employer] and attached to record. jls1 14:08 Yves Cabrera MD is Referral Physician. ar2 14:11 Patient moved to TR8 sew 14:15 No IV's were initiated during this patient's visit. No procedures done that require kr3 assistance. 14:16 The patient / caregiver is instructed regarding the plan of care and ED course. Patient kr3 has correct armband on for positive identification. Order Results: Lab Order: CBC with Diff; SPEC'M 03/14/16 12:39 Test: WHITE BLOOD COUNT; Value: 9.3; Range: 4.0-10.0; Units: K/mm3; Status: F Test: RED BLOOD COUNT; Value: 4.55; Range: 4.00-5.40; Units: M/mm3; Status: F Test: HEMOGLOBIN; Value: 13.4; Range: 12.0-16.0; Units: g/dl; Status: F Test: HEMATOCRIT; Value: 42.9; Range: 36.0-47.0; Units: %; Status: F Test: MEAN CORPUSCULAR VOLUME; Value: 94.2; Range: 80.0-96.0; Units: fl; Status: F Test: MEAN CORPUSCULAR HEMOGLOBIN; Value: 29.6; Range: 27.0-33.0; Units: pg; Status: F Test: MEAN CORPUSCULAR HGB CONC; Value: 31.4; Range: 32.0-36.5; Abnormal: Below low normal; Units: g/dl; Status: F Test: RED CELL DISTRIBUTION WIDTH; Value: 13.5; Range: 11.5-14.5; Units: %; Status: F Test: PLATELET COUNT, AUTOMATED; Value: 317; Range: 150-450; Units: k/mm3; Status: F Test: NEUTROPHILS %; Value: 62.4; Range: 36.0-66.0; Units: %; Status: F Test: LYMPH %; Value: 23.9; Range: 24.0-44.0; Abnormal: Below low normal; Units: %; Status: F Test: MONO %; Value: 8.0; Range: 0.0-5.0; Abnormal: Above high normal; Units: %; Status: F Test: EOS %; Value: 2.1; Range: 0.0-3.0; Units: %; Status: F Test: BASO %; Value: 2.1; Range: 0.0-1.0; Abnormal: Above high normal; Units: %; Status: F Test: LARGE UNSTAINED CELL %; Value: 1.4; Range: 0.0-4.0; Units: %; Status: F Test: NEUTROPHILS #; Value: 5.8; Range: 1.8-7.7; Units: K/mm3; Status: F Test: LYMPH #; Value: 2.4; Range: 1.5-4.5; Units: K/mm3; Status: F Test: MONO #; Value: 0.8; Range: 0.0-0.8; Units: K/mm3; Status: F Test: EOS #; Value: 0.2; Range: 0.0-0.50; Units: K/mm3; Status: F Test: BASO #; Value: 0.2; Range: 0.0-0.2; Units: K/mm3; Status: F Test: LARGE UNSTAINED CELL #; Value: 0.1; Range: 0.0-0.4; Units: K/mm3; Status: F Lab Order: Hcg, Serum Quantitative; SPEC' 03/14/16 12:39 Test: HCG, SERUM QUANTITATIVE; Value: 83; Units: MIU/ML; Status: F Test Note: ; GESTATIONAL AGE APPROXIMATE HCG RANGE (MIU/ML) 0.2-1 WEEK 5-50 1-2 WEEKS 50-500 2-3 WEEKS 100-5,000 3-4 WEEKS 500-10,000 4-5 WEEKS 1,000-50,000 5-6 WEEKS 10,000-100,000 6-8 WEEKS 15,000-200,000 2-3 MONTHS 10,000-100,000 NON FEMALES LESS THAN 3.0 Patient samples may contain human heterophilic antibodies that could react with immunoassays to give falsely elevated or depressed results. This assay has been designed to minimize interference from heterophilic antibodies. Elevated hCG levels have also been associated with trophoblastic disease and nontrophoblastic neoplasms. The possibility of having these diseases should be considered before a diagnosis of is made. This test is not intended for use as a surrogate marker for aiding in the diagnosis or monitoring the treatment of cancer patients. [employer] methodology. Lab Order: Basic Metabolic Profile; SPEC'M 03/14/16 12:39 Test: GLUCOSE, FASTING; Value: 78; Range: 70-105; Units: MG/DL; Status: F Test: BLOOD UREA NITROGEN; Value: 8; Range: 7-18; Units: MG/DL; Status: F Test: CREATININE FOR GFR; Value: 0.87; Range: 0.55-1.02; Units: MG/DL; Status: F Test: GLOMERULAR FILTRATION RATE; Value: > 60.0; Range: >60; Status: F Test: SODIUM LEVEL; Value: 143; Range: 136-145; Units: MEQ/L; Status: F Test: POTASSIUM SERUM; Value: 4.7; Range: 3.5-5.1; Units: MEQ/L; Status: F Test: CHLORIDE LEVEL; Value: 110; Range: 98-107; Abnormal: Above high normal; Units: MEQ/L; Status: F Test: CARBON DIOXIDE LEVEL; Value: 26; Range: 21-32; Units: MEQ/L; Status: F Test: ANION GAP; Value: 7; Range: 8-16; Abnormal: Below low normal; Units: MEQ/L; Status: F Test: CALCIUM LEVEL; Value: 9.0; Range: 8.5-10.1; Units: MG/DL; Status: F Test Note: ; Units are mL/min/1.73 m2 Chronic Kidney Disease Staging per NKF: Stage I & II GFR >=60 Normal to Mildly Decreased Stage III GFR 30-59 Moderately Decreased Stage IV GFR 15-29 Severely Decreased Stage V GFR <15 Very Little GFR Left ESRD GFR <15 on CMM TECHNICIAN Outcome: 14:09 Discharge ordered by Provider. ar2 14:15 Discharge Assessment: patient administered narcotics - yes. The following High Risk kr3 Discharge criteria are identified: None. Discharged to home ambulatory. Condition: stable. Discharge instructions given to patient, Instructed on discharge instructions, follow up and referral plans. Demonstrated understanding of instructions, Pt was receptive of discharge instructions/ teaching. No special radiology studies were completed. Property sent home with patient. 14:16 Patient left the ED. kr3 Signatures: Calista Mcmullen,RN RN kr3 Adrian Ervin PA-C PA-C ar2 Jacqueline Griffin mt4 Abigail GarciaRN RN [facility] Elvis, Mercedes Lama jls1 Boby Brownlee,RN RN jf3 MTDD
--- NOTE | 2016-03-16 15:17 | EDDOCDS ---
Physician Documentation [facility] Name: Kelli Zhang Age: 40 yrs Sex: Female : 1975 Arrival Date: 03/14/2016 Time: 11:52 Bed TR8 Private MD: NO PRIMARY PHYSICIAN, . Disposition: 03/14/16 14:09 Discharged to Home/Self Care. Impression: Incomplete spontaneous without complication. - Condition is Stable. - Discharge Instructions: Miscarriage. - Medication Reconciliation, Local Pharmacy Hours form. - Follow up: Yves Cabrera MD; When: As previously arranged; Reason: Recheck today's complaints, Continuance of care. Follow up: Emergency Department; When: As needed; Reason: Worsening of conditions, severe bleeding, severe pain. - Problem is new. - Symptoms are unchanged. Historical: - Allergies: no known allergies; - Home Meds: 1. none - PMHx: Ovarian cyst; - PSHx: LEAP; - Social history: Smoking status: Patient uses tobacco products, light tobacco smoker. No barriers to communication noted. - Family history: Not pertinent. - : The pt / caregiver states he / she is not on anticoagulants. Home medication list is obtained from the patient. - Exposure Risk Screening:: None identified. 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 8 in. (172.72 cm) (R); Pain 6/10; 11:55 Body Mass Index 29.65 (88.45 kg, 172.72 cm) mt4 MDM: 12:35 CBC with Diff Ordered. EDMS 12:35 Hcg, Serum Quantitative Ordered. EDMS 12:35 Basic Metabolic Profile Ordered. EDMS 13:41 CBC with Diff Reviewed. ar2 13:41 Basic Metabolic Profile Reviewed. ar2 13:41 Hcg, Serum Quantitative Reviewed. ar2 14:02 [facility] Payment Agreement was scanned into [employer] and attached to record. jls1 14:02 Financial registration complete. jls1 15:54 T-Sheet-- Draft Copy was scanned into [employer] and attached to record. klr Signatures: Dispatcher [employer] Calista Sethi,RN RN kr3 Adrian Ervin PA-C PA-C ar2 Abigail Garcia RN RN Mercedes Saldaña jls1 Cheryl Brambila The chart was reviewed and I authenticate all verbal orders and agree with the evaluation and treatment provided.Attachments: 14:02 [facility] Payment Agreement jls1 15:54 T-Sheet-- Draft Copy klr Chart Complete MTDD
--- NOTE | 2016-03-16 15:17 | EDDOCDS ---
Nurse's Notes [facility] Name: Kelli Zhang Age: 40 yrs Sex: Female : 1975 Arrival Date: 03/14/2016 Time: 11:52 Bed TR8 Private MD: NO PRIMARY PHYSICIAN, . Diagnosis: Incomplete spontaneous without complication Presentation: 03/14 12:05 Presenting complaint: Patient states: I was here the other day having a miscarriage, [facility] they wanted me to come back today to get my levels checked but I'm bleeding more and want to be seen, there is also a cyst involved. Risk factors: The patient reports no loss of conciousness prior to arrival. This patient has not had a hysterectomy. This patient has not begun menopause. Adult Sepsis Screening: The patient does not have new or worsening altered mentation. Patient's respiratory rate is less than 22. Systolic blood pressure is greater than 100. Patient has a qSOFA score of 0- Negative Sepsis Screen. Suicide/Homicide risk assessment- the patient denies having any suicidal and/or homicidal ideations and does not present with any other emotional, behavioral or mental health complaints. 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 Transition of care: patient was not received from another setting of care. 12:05 Acuity: ALYSE Level 3 [facility] 12:05 Method Of Arrival: Walkin/Carried/Asstd [facility] Triage Assessment: 12:08 General: Appears in no apparent distress, comfortable, Behavior is appropriate for age, [facility] cooperative. Pain: Location: pelvis Pain currently is 5 out of 10 on a pain scale. HIV screening NA for this visit Offered previously. : Reports vaginal bleeding that is heavy flow. 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 none - PMHx: Ovarian cyst; - PSHx: LEAP; - Social history: Smoking status: Patient uses tobacco products, light tobacco smoker. No barriers to communication noted. - Family history: Not pertinent. - : The pt / caregiver states he / she is not on anticoagulants. Home medication list is obtained from the patient. - Exposure Risk Screening:: None identified. Screenin:15 Screening information is obtained from the patient. Fall risk: No risks identified. kr3 Assistance ADL's: requires no assistance with activities of daily living. Abuse/DV Screen: The patient / caregiver reports he/she is: not in a situation that causes fear, pain or injury. Nutritional screening: No deficits noted. Advance Directives: Currently, there is no health care proxy. home support is adequate. Assessment: 14:15 General: Appears in no apparent distress, comfortable, Behavior is cooperative. kr3 Neurological: No deficits noted. Respiratory: Respiratory effort is even, unlabored. Vital Signs: 11:55 BP 139 / 77 RA Sitting (auto/reg); Pulse 62 RA; Resp 18 S; Temp 97.3(O); Pulse Ox 100% mt4 on R/A; Weight 88.45 kg (R); Height 5 ft. 8 in. (172.72 cm) (R); Pain 6/10; 11:55 Body Mass Index 29.65 (88.45 kg, 172.72 cm) mt4 Vitals: 11:55 Log In Time: March 14, 2016 at 11:52. mt4 ED Course: 11:54 Patient visited by Jacqueline Griffin. mt4 11:54 Patient moved to Waiting mt4 11:55 NO PRIMARY PHYSICIAN, . is Private Physician. mt4 11:57 Patient moved to Pre RCE mt4 12:07 Triage Initiated cjh 12:35 Patient moved to PR1 / 25 kr3 12:41 Patient moved to Pre RCE kr3 12:41 Basic Metabolic Profile Sent. kr3 12:41 Hcg, Serum Quantitative Sent. kr3 12:41 CBC with Diff Sent. kr3 13:06 Patient moved to Triage 2 jf3 13:40 [facility]. ar2 13:40 Jean Marie Delacruz MD is Attending Physician. ar2 13:41 Patient visited by Adrian Ervin PA-C. ar2 13:56 Patient visited by Frieda Leal. sew 14:02 [facility] Payment Agreement was scanned into [employer] and attached to record. jls1 14:08 Yves Cabrera MD is Referral Physician. ar2 14:11 Patient moved to TR8 sew 14:15 No IV's were initiated during this patient's visit. No procedures done that require kr3 assistance. 14:16 The patient / caregiver is instructed regarding the plan of care and ED course. Patient kr3 has correct armband on for positive identification. 15:54 T-Sheet-- Draft Copy was scanned into [employer] and attached to record. klr Order Results: Lab Order: CBC with Diff; SPEC'M 03/14/16 12:39 Test: WHITE BLOOD COUNT; Value: 9.3; Range: 4.0-10.0; Units: K/mm3; Status: F Test: RED BLOOD COUNT; Value: 4.55; Range: 4.00-5.40; Units: M/mm3; Status: F Test: HEMOGLOBIN; Value: 13.4; Range: 12.0-16.0; Units: g/dl; Status: F Test: HEMATOCRIT; Value: 42.9; Range: 36.0-47.0; Units: %; Status: F Test: MEAN CORPUSCULAR VOLUME; Value: 94.2; Range: 80.0-96.0; Units: fl; Status: F Test: MEAN CORPUSCULAR HEMOGLOBIN; Value: 29.6; Range: 27.0-33.0; Units: pg; Status: F Test: MEAN CORPUSCULAR HGB CONC; Value: 31.4; Range: 32.0-36.5; Abnormal: Below low normal; Units: g/dl; Status: F Test: RED CELL DISTRIBUTION WIDTH; Value: 13.5; Range: 11.5-14.5; Units: %; Status: F Test: PLATELET COUNT, AUTOMATED; Value: 317; Range: 150-450; Units: k/mm3; Status: F Test: NEUTROPHILS %; Value: 62.4; Range: 36.0-66.0; Units: %; Status: F Test: LYMPH %; Value: 23.9; Range: 24.0-44.0; Abnormal: Below low normal; Units: %; Status: F Test: MONO %; Value: 8.0; Range: 0.0-5.0; Abnormal: Above high normal; Units: %; Status: F Test: EOS %; Value: 2.1; Range: 0.0-3.0; Units: %; Status: F Test: BASO %; Value: 2.1; Range: 0.0-1.0; Abnormal: Above high normal; Units: %; Status: F Test: LARGE UNSTAINED CELL %; Value: 1.4; Range: 0.0-4.0; Units: %; Status: F Test: NEUTROPHILS #; Value: 5.8; Range: 1.8-7.7; Units: K/mm3; Status: F Test: LYMPH #; Value: 2.4; Range: 1.5-4.5; Units: K/mm3; Status: F Test: MONO #; Value: 0.8; Range: 0.0-0.8; Units: K/mm3; Status: F Test: EOS #; Value: 0.2; Range: 0.0-0.50; Units: K/mm3; Status: F Test: BASO #; Value: 0.2; Range: 0.0-0.2; Units: K/mm3; Status: F Test: LARGE UNSTAINED CELL #; Value: 0.1; Range: 0.0-0.4; Units: K/mm3; Status: F Lab Order: Hcg, Serum Quantitative; SPEC'M 03/14/16 12:39 Test: HCG, SERUM QUANTITATIVE; Value: 83; Units: MIU/ML; Status: F Test Note: ; GESTATIONAL AGE APPROXIMATE HCG RANGE (MIU/ML) 0.2-1 WEEK 5-50 1-2 WEEKS 50-500 2-3 WEEKS 100-5,000 3-4 WEEKS 500-10,000 4-5 WEEKS 1,000-50,000 5-6 WEEKS 10,000-100,000 6-8 WEEKS 15,000-200,000 2-3 MONTHS 10,000-100,000 NON FEMALES LESS THAN 3.0 Patient samples may contain human heterophilic antibodies that could react with immunoassays to give falsely elevated or depressed results. This assay has been designed to minimize interference from heterophilic antibodies. Elevated hCG levels have also been associated with trophoblastic disease and nontrophoblastic neoplasms. The possibility of having these diseases should be considered before a diagnosis of is made. This test is not intended for use as a surrogate marker for aiding in the diagnosis or monitoring the treatment of cancer patients. [employer] methodology. Lab Order: Basic Metabolic Profile; SPEC'M 03/14/16 12:39 Test: GLUCOSE, FASTING; Value: 78; Range: 70-105; Units: MG/DL; Status: F Test: BLOOD UREA NITROGEN; Value: 8; Range: 7-18; Units: MG/DL; Status: F Test: CREATININE FOR GFR; Value: 0.87; Range: 0.55-1.02; Units: MG/DL; Status: F Test: GLOMERULAR FILTRATION RATE; Value: > 60.0; Range: >60; Status: F Test: SODIUM LEVEL; Value: 143; Range: 136-145; Units: MEQ/L; Status: F Test: POTASSIUM SERUM; Value: 4.7; Range: 3.5-5.1; Units: MEQ/L; Status: F Test: CHLORIDE LEVEL; Value: 110; Range: 98-107; Abnormal: Above high normal; Units: MEQ/L; Status: F Test: CARBON DIOXIDE LEVEL; Value: 26; Range: 21-32; Units: MEQ/L; Status: F Test: ANION GAP; Value: 7; Range: 8-16; Abnormal: Below low normal; Units: MEQ/L; Status: F Test: CALCIUM LEVEL; Value: 9.0; Range: 8.5-10.1; Units: MG/DL; Status: F Test Note: ; Units are mL/min/1.73 m2 Chronic Kidney Disease Staging per NKF: Stage I & II GFR >=60 Normal to Mildly Decreased Stage III GFR 30-59 Moderately Decreased Stage IV GFR 15-29 Severely Decreased Stage V GFR <15 Very Little GFR Left ESRD GFR <15 on CASTING TRUCKER Outcome: 14:09 Discharge ordered by Provider. ar2 14:15 Discharge Assessment: patient administered narcotics - yes. The following High Risk kr3 Discharge criteria are identified: None. Discharged to home ambulatory. Condition: stable. Discharge instructions given to patient, Instructed on discharge instructions, follow up and referral plans. Demonstrated understanding of instructions, Pt was receptive of discharge instructions/ teaching. No special radiology studies were completed. Property sent home with patient. 14:16 Patient left the ED. kr3 Signatures: Calista McmullenRN RN kr3 Adrian Ervin PA-C PA-C ar2 Jacqueline Griffin mt4 Abigail Garcia RN RN cjsophia Leal, Mercedes Lama [facility] Boby Brownlee RN RN jf3 Cheryl Brambila Chart Complete MTDD
--- NOTE | 2016-03-16 15:17 | EDDOCDS ---
Physician Documentation [facility] Name: Kelli Zhang Age: 40 yrs Sex: Female : 1975 Arrival Date: 03/14/2016 Time: 11:52 Bed TR8 Private MD: NO PRIMARY PHYSICIAN, . Disposition: 03/14/16 14:09 Discharged to Home/Self Care. Impression: Incomplete spontaneous without complication. - Condition is Stable. - Discharge Instructions: Miscarriage. - Medication Reconciliation, Local Pharmacy Hours form. - Follow up: Yves Cabrera MD; When: As previously arranged; Reason: Recheck today's complaints, Continuance of care. Follow up: Emergency Department; When: As needed; Reason: Worsening of conditions, severe bleeding, severe pain. - Problem is new. - Symptoms are unchanged. Historical: - Allergies: no known allergies; - Home Meds: 1. none - PMHx: Ovarian cyst; - PSHx: LEAP; - Social history: Smoking status: Patient uses tobacco products, light tobacco smoker. No barriers to communication noted. - Family history: Not pertinent. - : The pt / caregiver states he / she is not on anticoagulants. Home medication list is obtained from the patient. - Exposure Risk Screening:: None identified. 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 8 in. (172.72 cm) (R); Pain 6/10; 11:55 Body Mass Index 29.65 (88.45 kg, 172.72 cm) mt4 MDM: 12:35 CBC with Diff Ordered. EDMS 12:35 Hcg, Serum Quantitative Ordered. EDMS 12:35 Basic Metabolic Profile Ordered. EDMS 13:41 CBC with Diff Reviewed. ar2 13:41 Basic Metabolic Profile Reviewed. ar2 13:41 Hcg, Serum Quantitative Reviewed. ar2 14:02 [facility] Payment Agreement was scanned into [employer] and attached to record. jls1 14:02 Financial registration complete. jls1 15:54 T-Sheet-- Draft Copy was scanned into [employer] and attached to record. klr Signatures: Dispatcher [employer] Calista Sethi,RN RN kr3 Adrian Ervin PA-C PA-C ar2 Abigail Garcia RN RN Mercedes Saldaña jls1 Cheryl Brambila The chart was reviewed and I authenticate all verbal orders and agree with the evaluation and treatment provided.Attachments: 14:02 [facility] Payment Agreement jls1 15:54 T-Sheet-- Draft Copy klr Chart Complete MTDD
== END 2016-03-14 14:16 | disposition home or self-care (01) ==
LOC: M ED 11:52
DX: O03.4 Incomplete spontaneous abortion without complication (principal); O99.330 Smoking (tobacco) complicating pregnancy, unspecified trimester; F17.210 Nicotine dependence, cigarettes, uncomplicated; Z3A.00 Weeks of gestation of pregnancy not specified

== ENCOUNTER → 2016-11-15 | Outpatient (REF) | payer OTHER ==
[2016-11-15 18:41] LABS: ALBUMIN 3.8 GM/DL (3.2-5.2); ALBUMIN/GLOBULIN RATIO 1.36 (1.00-1.93); ALKALINE PHOSPHATASE 40 U/L (45-117); ALT/SGPT 13 U/L (12-78); ANION GAP 9 MEQ/L (8-16); AST/SGOT 10 U/L (15-37); BILIRUBIN,TOTAL 0.4 MG/DL (0.2-1.0); BLOOD UREA NITROGEN 9 MG/DL (7-18); CALCIUM LEVEL 8.5 MG/DL (8.5-10.1); CARBON DIOXIDE LEVEL 25 MEQ/L (21-32); CHLORIDE LEVEL 109 MEQ/L (98-107); CHOLESTEROL LEVEL 129 MG/DL (<200); CREATININE FOR GFR 1.05 MG/DL (0.55-1.02); GLOMERULAR FILTRATION RATE > 60.0 (>60); GLUCOSE, FASTING 78 MG/DL (70-105); POTASSIUM SERUM 4.4 MEQ/L (3.5-5.1); SODIUM LEVEL 143 MEQ/L (136-145); TOTAL PROTEIN 6.6 GM/DL (6.4-8.2); TRIGLYCERIDES LEVEL 77 MG/DL (<150)
[2016-11-15 18:42] LABS: BASO # 0.1 K/mm3 (0.0-0.2); BASO % 0.6 % (0.0-1.0); EOS # 0.1 K/mm3 (0.0-0.50); LARGE UNSTAINED CELL # 0.1 K/mm3 (0.0-0.4); LARGE UNSTAINED CELL % 1.1 % (0.0-4.0); LYMPH # 1.7 K/mm3 (1.5-4.5); LYMPH % 18.7 % (24.0-44.0); MEAN CORPUSCULAR HEMOGLOBIN 31.7 pg (27.0-33.0); MEAN CORPUSCULAR HGB CONC 34.1 g/dl (32.0-36.5); MEAN CORPUSCULAR VOLUME 93.2 fl (80.0-96.0); MONO # 0.6 K/mm3 (0.0-0.8); MONO % 6.4 % (0.0-5.0); NEUTROPHILS # 6.6 K/mm3 (1.8-7.7); NEUTROPHILS % 72.2 % (36.0-66.0); PLATELET COUNT, AUTOMATED 293 k/mm3 (150-450); RED CELL DISTRIBUTION WIDTH 12.3 % (11.5-14.5); WHITE BLOOD COUNT 9.2 K/mm3 (4.0-10.0)
[2016-11-16 10:40] LABS: VITAMIN B12 LEVEL 165 PG/ML (247-911)
== END ==
LOC: M LABDRWAD 18:10
PROVIDERS: ATTEND Registered Nurse Psychiatric/Mental Health
DX: F33.1 Major depressive disorder, recurrent, moderate (principal)

== ENCOUNTER 2018-01-28 12:18 | Emergency (ER) | payer OTHER ==
[2018-01-28 12:56] LABS: BASO # 0.1 10^3/uL (0.0-0.2); BASO % 0.7 % (0.0-1.0); EOS # 0.1 10^3/uL (0.0-0.50); EOS % 0.8 % (0.0-3.0); HEMATOCRIT 38.7 % (36.0-47.0); IMMATURE GRANULOCYTE % 0.8 % (0-3.0); LYMPH # 2.1 10^3/uL (1.5-4.5); LYMPH % 17.2 % (24.0-44.0); MEAN CORPUSCULAR HEMOGLOBIN 30.6 pg (27.0-33.0); MEAN CORPUSCULAR HGB CONC 33.6 g/dl (32.0-36.5); MEAN CORPUSCULAR VOLUME 91.1 fl (80.0-96.0); MONO # 1.1 10^3/uL (0.0-0.8); MONO % 8.6 % (0.0-5.0); NEUTROPHILS # 8.8 10^3/uL (1.8-7.7); NEUTROPHILS % 71.9 % (36.0-66.0); PLATELET COUNT, AUTOMATED 335 10^3/uL (150-450); RED BLOOD COUNT 4.25 10^6/uL (4.00-5.40); RED CELL DISTRIBUTION WIDTH 13.1 % (11.5-14.5); WHITE BLOOD COUNT 12.3 10^3/uL (4.0-10.0)
[2018-01-28 13:17] LABS: APPEARANCE, URINE CLEAR (CLEAR); BACTERIA, URINE AUTO 1+ (NEGATIVE); BILIRUBIN, URINE AUTO NEGATIVE (NEGATIVE); BLOOD, URINE BLOOD 2+ (NEGATIVE); COLOR, URINE YELLOW (YELLOW); GLUCOSE, URINE (UA) AUTO NEGATIVE (NEGATIVE); KETONE, URINE AUTO NEGATIVE (NEGATIVE); LEUKOCYTE ESTERASE, URINE AUTO NEGATIVE (NEGATIVE); MUCUS, URINE SMALL (NEGATIVE); NITRITE, URINE AUTO NEGATIVE (NEGATIVE); PROTEIN, URINE AUTO NEGATIVE (NEGATIVE); RBC, URINE AUTO 1 /HPF (0-3); SPECIFIC GRAVITY URINE AUTO 1.006 (1.002-1.035); SQUAMOUS EPITHELIAL CELL UR AU 0 /HPF (0-6); UROBILINOGEN, URINE AUTO 0.2 mg/dL (0.0-2.0); WBC, URINE AUTO 2 /HPF (0-3)
[2018-01-28 13:43] LABS: HCG, SERUM QUANTITATIVE 12003 MIU/ML
[2018-01-28 13:45] LABS: TYPE AND SCREEN 1 1
== END 2018-01-28 14:22 | disposition home or self-care (01) ==
LOC: M ED 12:18
DX: O20.0 Threatened abortion (principal)
CPT/HCPCS: 76801

== ENCOUNTER 2018-01-30 12:53 | Emergency (ER) | payer OTHER ==
[2018-01-30 13:27] LABS: BASO # 0.1 10^3/uL (0.0-0.2); EOS # 0.1 10^3/uL (0.0-0.50); EOS % 0.8 % (0.0-3.0); HEMATOCRIT 39.6 % (36.0-47.0); HEMOGLOBIN 12.9 g/dl (12.0-15.5); IMMATURE GRANULOCYTE % 0.7 % (0-3.0); LYMPH # 2.5 10^3/uL (1.5-4.5); LYMPH % 25.5 % (24.0-44.0); MEAN CORPUSCULAR HEMOGLOBIN 30.1 pg (27.0-33.0); MEAN CORPUSCULAR HGB CONC 32.6 g/dl (32.0-36.5); MEAN CORPUSCULAR VOLUME 92.5 fl (80.0-96.0); MONO # 0.8 10^3/uL (0.0-0.8); MONO % 8.3 % (0.0-5.0); NEUTROPHILS # 6.3 10^3/uL (1.8-7.7); NEUTROPHILS % 63.7 % (36.0-66.0); PLATELET COUNT, AUTOMATED 347 10^3/uL (150-450); RED BLOOD COUNT 4.28 10^6/uL (4.00-5.40); RED CELL DISTRIBUTION WIDTH 13.2 % (11.5-14.5); WHITE BLOOD COUNT 9.9 10^3/uL (4.0-10.0)
[2018-01-30 13:34] LABS: KETONE, URINE AUTO RFX NEGATIVE (NEGATIVE); LEUKOCYTE ESTERASE UR AUTO RFX NEGATIVE (NEGATIVE); NITRITE, URINE AUTO RFX NEGATIVE (NEGATIVE); RBC, URINE AUTO RFX 1 /HPF (0-3); SPECIFIC GRAVITY UR AUTO RFX 1.002 (1.002-1.035); SQUAM EPITHELIAL CELL UR AURFX 0 /HPF (0-6); WBC, URINE AUTO RFX 1 /HPF (0-3)
[2018-01-30 14:14] LABS: HCG, SERUM QUANTITATIVE 13951 MIU/ML
== END 2018-01-30 14:37 | disposition home or self-care (01) ==
LOC: M ED 12:53
DX: O20.0 Threatened abortion (principal); O99.331 Smoking (tobacco) complicating pregnancy, first trimester; Z3A.01 Less than 8 weeks gestation of pregnancy
CPT/HCPCS: 76801

== ENCOUNTER → 2018-03-16 | Outpatient (REF) | payer OTHER ==
[~2018-03-16] MED LIST changes: -ACET50TA PO; +MAPA500T2 PO; +PRENTAB7 PO
[2018-03-18 14:42] LABS: HPV HYBRID CAPTURE II Positive (Negative)
== END ==
LOC: M LAB REF 13:37
PROVIDERS: ATTEND Advanced Practice Midwife
DX: Z12.4 Encounter for screening for malignant neoplasm of cervix (principal)

== ENCOUNTER → 2018-04-13 | Outpatient (CLI) | payer OTHER ==
[2018-04-13 14:08] LABS: BASO # 0.1 10^3/uL (0.0-0.2); BASO % 0.7 % (0.0-1.0); EOS # 0.1 10^3/uL (0.0-0.50); EOS % 0.9 % (0.0-3.0); HEMATOCRIT 40.6 % (36.0-47.0); HEMOGLOBIN 13.5 g/dl (12.0-15.5); LYMPH % 14.3 % (24.0-44.0); MEAN CORPUSCULAR HGB CONC 33.3 g/dl (32.0-36.5); MEAN CORPUSCULAR VOLUME 93.3 fl (80.0-96.0); MONO # 1.2 10^3/uL (0.0-0.8); NEUTROPHILS # 10.1 10^3/uL (1.8-7.7); NEUTROPHILS % 73.4 % (36.0-66.0); PLATELET COUNT, AUTOMATED 380 10^3/uL (150-450); RED BLOOD COUNT 4.35 10^6/uL (4.00-5.40); WHITE BLOOD COUNT 13.8 10^3/uL (4.0-10.0)
[2018-04-13 15:00] LABS: HEPATITIS C VIRUS ABY INDEX < 0.0 INDEX (<0.8); HIV 1&2 SCREEN CENTAUR NEGATIVE (NEGATIVE); RUBELLA IgG QUALITATIVE IMMUNE (IMMUNE)
[2018-04-13 16:51] LABS: CHLAMYDIA DNA AMPLIFICATION NEGATIVE (NEGATIVE); GC DNA AMPLIFICATION NEGATIVE (NEGATIVE)
== END ==
LOC: M SMT 09:58
PROVIDERS: ATTEND Obstetrics & Gynecology
DX: Z34.80 Encounter for supervision of other normal pregnancy, unspecified trimester (principal); Z3A.09 9 weeks gestation of pregnancy

== ENCOUNTER 2018-05-11 09:43 | Inpatient (IN) | payer OTHER ==
[~2018-05-11] VITALS: Ht 172.7 cm; Wt 84.0 kg
[2018-05-11] VITALS (7 sets, daily range): BP systolic 85–118; BP diastolic 46–67
[~2018-05-11 09:43] MED LIST changes: -ZOFR4TAB16 PO
[2018-05-11 10:17] LABS: HEMOGLOBIN 11.4 g/dl (12.0-15.5); MEAN CORPUSCULAR HEMOGLOBIN 31.2 pg (27.0-33.0); MEAN CORPUSCULAR HGB CONC 33.5 g/dl (32.0-36.5); MEAN CORPUSCULAR VOLUME 93.2 fl (80.0-96.0); PLATELET COUNT, AUTOMATED 330 10^3/uL (150-450); RED BLOOD COUNT 3.65 10^6/uL (4.00-5.40); WHITE BLOOD COUNT 15.8 10^3/uL (4.0-10.0)
[2018-05-11 10:31] LABS: INR 1.06; PROTHROMBIN TIME 13.9 SECONDS (12.1-14.4)
[2018-05-11 10:32] LABS: PARTIAL THROMBOPLASTIN TIME 26.6 SECONDS (25.4-37.6)
[2018-05-11] MEDS: MORPHINE 4 MG/ML 1ML VIAL/SYRINGE (J2270) IV PRN ×4 (10:45→21:33)
[2018-05-11] MEDS ORDERED: ZOFR4TAB16 PO (11:57)
--- NOTE | 2018-05-11 12:29 | HPE ---
DATE OF ADMISSION: 05/11/2018 Kelli is a 43-year-old, 8, para 3-0-4-3, at 21-4/7 weeks gestation,with an estimated date of confinement (EDC) of 09/17/2018 based on first trimester ultrasound. She presents to labor and delivery today following a routine appointment in the office, seen by Dr. Se Aguilar, with a complaint of onset of vaginal bleeding last evening and cramping that started at approximately 07:30 this morning. She reports the bleeding as bright red. She does deny vaginal fluid leakage. The fetus has been active. Her care was initiated at [facility] in the first trimester. course complicated by advanced maternal age, smoking during . She had a positive cell-free DNA testing with a positive trisomy 21, female fetus. She had first trimester bleeding. A history of a loop electrosurgical excision procedure (LEEP) times 3-4. History of anxiety. She has been seen at the center for consultation. echo has been ordered to be done early May. She did decline amniocentesis. Ultrasound at [facility] showed a somewhat normal anatomy with a question of a possible presence of absence nasal bone and echogenic foci. OBSTETRIC HISTORY: August 2006, 42 weeks gestation, 7 pound 6 ounce male, vaginal delivery. November 2005, 38 weeks gestation, 5 pound 2 ounce female. She had, had a cerclage placed that was removed and a vaginal delivery. March 2015, 39 weeks gestation, 6 pound 7 ounce male, vaginal delivery. Spontaneous miscarriage times two and an ectopic . OBSTETRIC LABS: A negative, antibody screen positive because she had received RhoGAM for first trimester bleeding, anti-D, most recent Pap was normal. HPV positive. Rubella immune, VDRL nonreactive. Urine culture no growth. Hep B surface antigen negative. HIV negative. Hep C antibody nonreactive. Gonorrhea and chlamydia negative. Panorama testing female fetus with high risk trisomy 21. She has not undergone her gestational diabetic screening at this early gestational age. PAST MEDICAL HISTORY: 1. Bipolar. 2. depression. 3. Varicose veins. 4. Abnormal Pap smear. SURGERIES: Colposcopy, LEEP. FAMILY HISTORY: Hypertension, bipolar, bladder cancer. Prior , son born with plagiocephaly torticollis, shortening of the neck muscles and laryngomalacia. SOCIAL HISTORY: The patient is . Her is at bedside and supportive. She is a pack a day smoker. She denies alcohol and drug use. Positive HPV. Denies remote history of abuse as a child physically. ALLERGIES: NO KNOWN DRUG ALLERGIES. CURRENT MEDICATIONS: Include: - vitamins - Zofran as needed OBJECTIVE: She presents to labor and delivery today. Temperature 98.8. Pulse 83. Respirations 18. Blood pressure (BP) is 107/56. She is alert and oriented times three. heart rate is 155. Contractions appear to be every 2-3 minutes. They do palpate mild. Exam performed in the office by Dr. Se Aguilar. Speculum exam noted bleeding from cervical os. Cervix is visually closed. Ultrasound performed in the office noted an echogenic area that measured approximately 5 cm, which could appear to be a blood clot, above the internal cervical os and her cervical length was 2.4 cm. Labs have already been obtained. Her hemoglobin is 11.4, hematocrit 34.0, platelets are 330 and her white count is 15.8. Her coags with PT of 13.9, APTT 26.6. Fibrinogen is 442. KB is 0.0005. ASSESSMENT: Intrauterine at 21-4/7 weeks. heart rate is appropriate for gestational age. 2nd trimester bleeding. Trisomy 21 fetus. PLAN: Per consult with Dr. Se Aguilar, admit for observation. [place] continuous to moitor for contractions, occasional heart rate. Saline lock. IV pain medication PRN. Did review the potential for loss due to the current clinical presentation and non-viable gestational age. At this time, the patient and her have had their questions answered and appear to be coping reasonably well given the circumstances. She will be monitored and observed for a minimum of 24-48 hours. ROSA
[2018-05-11] MEDS: PROMETHAZINE INJ 25 MG/ML VIAL (J2550) IV PRN (21:32)
[2018-05-12 05:53] VITALS: BP 109/61
[2018-05-12 08:23] VITALS: BP 119/65
--- NOTE | 2018-05-12 09:06 | REP ---
OB ULTRASOUND: Real-time sonographic evaluation of the gravid uterus is performed utilizing transabdominal and endovaginal technique. There is a single living intrauterine gestation. The estimated gestational age is 21 weeks 5 days based on the first ultrasound EDC 09/17/2018. Today's measurements indicate suboptimal growth. BPD 48 mm = 20 weeks 3 days, at the 15th percentile. HC 174 mm = 19 weeks 6 days, less than 5th percentile. AC 155 mm = 20 weeks 5 days, at the 27th percentile. Femur length 31 mm = 19 weeks 3 days, less than 5th percentile. HC/AC ratio 1.12 within normal range. Estimated weight 332 grams less than 3rd percentile. Cervix is closed and measures 2.6 cm in length on endovaginal images. SEEN/GROSSLY UNREMARKABLE Lateral ventricles Yes Posterior fossa Yes Upper lip Yes Four-chamber heart No LVOT No RVOT No Stomach Yes Cord insertion Yes Three vessel cord Yes Kidneys No Bladder Yes Spine No position: Vertex. Placenta: Anterior and grade 2 with no previa. Amniotic fluid within normal limits. Large subchronic hemorrhage is seen in the lower uterine segment measuring 9.5 x 5.0 x 8.4 cm. Please note the subchronic hemorrhage covers the internal cervical os. Electronically Signed by Kashif Grove MD 05/12/2018 03:55 P
[2018-05-12] MEDS: PROMETHAZINE INJ 25 MG/ML VIAL (J2550) IV PRN (09:12)
== END 2018-05-12 10:28 | disposition home or self-care (01) | DRG 566 ==
LOC: M LDI 09:43 → OBSVTOIN 09:43
PROVIDERS: ADMIT Advanced Practice Midwife; ATTEND Advanced Practice Midwife
DX: O46.92 Antepartum hemorrhage, unspecified, second trimester (principal); O45.92 Premature separation of placenta, unspecified, second trimester; Z3A.21 21 weeks gestation of pregnancy; O99.332 Smoking (tobacco) complicating pregnancy, second trimester; F17.200 Nicotine dependence, unspecified, uncomplicated

== ENCOUNTER → 2018-05-11 | Outpatient (REF) | payer OTHER ==
[~2018-05-11] MED LIST changes: +ZOFR4TAB16 PO
[2018-05-17 12:05] LABS: HPV HYBRID CAPTURE II Negative (Negative)
== END ==
LOC: M LAB REF 11:18
PROVIDERS: ATTEND Obstetrics & Gynecology
DX: Z12.4 Encounter for screening for malignant neoplasm of cervix (principal)

== ENCOUNTER → 2018-06-27 | Outpatient (REF) | payer OTHER ==
[~2018-06-27] MED LIST changes: +IBUP600T42 PO; -IBUP60TA PO; +ZOFR4TAB16 PO
[2018-06-27 19:54] LABS: HEMOGLOBIN 11.7 g/dl (12.0-15.5); MEAN CORPUSCULAR HEMOGLOBIN 31.5 pg (27.0-33.0); MEAN CORPUSCULAR HGB CONC 31.6 g/dl (32.0-36.5); MEAN CORPUSCULAR VOLUME 99.5 fl (80.0-96.0); PLATELET COUNT, AUTOMATED 327 10^3/uL (150-450); RED BLOOD COUNT 3.72 10^6/uL (4.00-5.40); WHITE BLOOD COUNT 15.6 10^3/uL (4.0-10.0)
== END ==
LOC: M LABDRWAD 19:26 → M LAB REF 19:26
PROVIDERS: ATTEND Obstetrics & Gynecology
DX: Z34.82 Encounter for supervision of other normal pregnancy, second trimester (principal); Z36.89 Encounter for other specified antenatal screening

== ENCOUNTER → 2018-07-02 | Outpatient (REF) | payer OTHER ==
[~2018-07-02] MED LIST changes: +ZANTTAB PO
== END ==
LOC: M LAB REF 09:50
PROVIDERS: ATTEND Obstetrics & Gynecology
DX: Z34.02 Encounter for supervision of normal first pregnancy, second trimester (principal); Z3A.00 Weeks of gestation of pregnancy not specified

== ENCOUNTER 2018-07-24 08:40 | Outpatient (CLI) | payer OTHER ==
[~2018-07-24] VITALS: Ht 172.7 cm; Wt 89.7 kg
[~2018-07-24 08:40] MED LIST changes: -ZANTTAB PO
[2018-07-24 08:54] VITALS: BP 116/61
[2018-07-24] MEDS ORDERED: ZANTTAB PO (09:03)
== END 2018-07-24 09:30 | disposition home or self-care (01) ==
LOC: M LDO 08:40
PROVIDERS: ATTEND Obstetrics & Gynecology
DX: O36.8130 Decreased fetal movements, third trimester, not applicable or unspecified (principal); Z3A.32 32 weeks gestation of pregnancy

== ENCOUNTER 2019-09-09 10:28 | Emergency (ER) | payer OTHER ==
[~2019-09-09] VITALS: Ht 172.7 cm; Wt 95.8 kg
[2019-09-09 10:28] VITALS: BP 117/68
[~2019-09-09 10:28] MED LIST changes: +ZANT150T40 PO
[2019-09-09] MEDS ORDERED: KETOROLAC 60MG 2ML VIAL IM ONE (11:30)
[2019-09-09] MEDS ORDERED: methylPREDNISolone 125MG 2ML VIAL IM ONE (11:30)
[2019-09-09] MEDS ORDERED: LIDOCAINE 5% (LIDODERM) PATCH TD ONE (11:30)
[2019-09-09] MEDS ORDERED: CYCL5TAB PO (12:47)
[2019-09-09] MEDS ORDERED: IBUP80TA PO (12:47)
[2019-09-09] MEDS ORDERED: LIDO5DIS41 TOP (12:47)
[2019-09-09] MEDS ORDERED: **NOTE PATIENT COMMENT** MISC XX SCH (21:00)
== END 2019-09-09 12:58 | disposition home or self-care (01) ==
LOC: M ED 10:28
DX: M54.5 Low back pain (principal); F17.200 Nicotine dependence, unspecified, uncomplicated; F41.9 Anxiety disorder, unspecified
CPT/HCPCS: 99282; J1885; J2930

== ENCOUNTER → 2019-12-04 | Outpatient (CLI) | payer OTHER ==
[~2019-12-04] MED LIST changes: +CYCL5TAB PO; +IBUP80TA PO; +LIDO5DIS41 TOP
--- NOTE | 2019-12-04 10:07 | ECGEPIP ---
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
[2019-12-04 14:07] LABS: HEMATOCRIT 42.7 % (36.0-47.0); HEMOGLOBIN 13.3 g/dl (12.0-15.5); MEAN CORPUSCULAR HEMOGLOBIN 29.8 pg (27.0-33.0); MEAN CORPUSCULAR HGB CONC 31.1 g/dl (32.0-36.5); MEAN CORPUSCULAR VOLUME 95.5 fl (80.0-96.0); PLATELET COUNT, AUTOMATED 358 10^3/uL (150-450); RED BLOOD COUNT 4.47 10^6/uL (4.00-5.40)
[2019-12-04 14:43] LABS: ALBUMIN 3.6 GM/DL (3.2-5.2); ALT/SGPT 10 U/L (12-78); BILIRUBIN,TOTAL 0.7 MG/DL (0.2-1.0); BLOOD UREA NITROGEN 7 MG/DL (7-18); CALCIUM LEVEL 8.9 MG/DL (8.5-10.1); CARBON DIOXIDE LEVEL 28 MEQ/L (21-32); CHLORIDE LEVEL 107 MEQ/L (98-107); CHOLESTEROL LEVEL 157 MG/DL (<200); CHOLESTEROL RISK RATIO 3.651 (<5); CREATININE FOR GFR 0.91 MG/DL (0.55-1.30); FREE THYROXINE INDEX 3.2 % (1.3-4.8); GLOMERULAR FILTRATION RATE > 60.0 (>58); GLUCOSE, FASTING 62 MG/DL (70-100); HDL CHOLESTEROL 43 MG/DL (>40); LDL CHOLESTEROL 100 MG/DL (<100); NON-HDL-C 114 MG/DL; POTASSIUM SERUM 4.3 MEQ/L (3.5-5.1); SODIUM LEVEL 139 MEQ/L (136-145); T UPTAKE 35 % (30-39); THYROXINE (T4) 9.1 UG/DL (4.5-12.0); TOTAL PROTEIN 6.8 GM/DL (6.4-8.2); TRIGLYCERIDES LEVEL 69 MG/DL (<150)
[2019-12-04 14:44] LABS: TOTAL 25(OH) VITAMIN D 14.4 NG/ML (30.0-100.0); VITAMIN B12 LEVEL 177 PG/ML
[2019-12-04 14:45] LABS: FOLATE 5.1 NG/ML
[2019-12-04 15:00] LABS: HEMOGLOBIN A1c 5.1 %
[2019-12-10 14:07] LABS: VITAMIN B1 LEVEL WHOLE BLOOD 104.3 nmol/L (66.5-200.0); VITAMIN K1 <.13 ng/mL (0.13-1.88)
== END ==
LOC: M LAB 08:29
PROVIDERS: ATTEND Nurse Practitioner Psychiatric/Mental Health
DX: F25.0 Schizoaffective disorder, bipolar type (principal); R94.31 Abnormal electrocardiogram [ECG] [EKG]

== ENCOUNTER → 2020-01-30 | Outpatient (REF) | payer OTHER | LOC: M SFHCWAGY 17:00 | PROVIDERS: ATTEND Obstetrics & Gynecology | DX: Z12.4 Encounter for screening for malignant neoplasm of cervix (principal) ==

== ENCOUNTER → 2020-02-02 | Outpatient (CLI) | payer OTHER ==
--- NOTE | 2020-02-02 12:38 | REPMRS ---
Patient History The patient states she had a clinical breast exam in January 2020. Family history of colorectal cancer at age 65 in maternal grandfather, colorectal cancer at age 65 in maternal grandmother. Digital Woman Screen Mammo: February 02, 2020 - Exam #: [id number] Bilateral CC and MLO view(s) were taken. Technologist: Shruti Fitzgerald, Technologist No prior studies available for comparison. FINDINGS: There are scattered fibroglandular densities. The Volpara volumetric breast density category is: B. There is no evidence of dominant mass, architectural distortion, or grouped microcalcification typical of malignancy. 3-D tomosynthesis shows no additional findings. Assessment: BI-RADS/ACR category 1 mammogram. Negative Mammogram. Recommendation Routine screening mammogram of both breasts in 1 year (for women over age 40). This patient's [facility] Lifetime Breast Cancer RIsk is estimated at 9.4 %. This mammogram was interpreted with the aid of an FDA-approved computer-aided dectection system. Electronically Signed By: Florian Zuleta MD 02/02/20 0863
--- NOTE | 2020-02-02 13:43 | REP ---
INDICATION: AUB/N93.9. COMPARISON: None. TECHNIQUE: Transabdominal and transvaginal scanning were performed. FINDINGS: Uterine dimensions are normal at 8.0 x 3.6 x 5.1 cm. Endometrial echo is 1.3 cm thick and centrally placed. No free fluid is seen in the cul-de-sac. Visualized bladder bailey are smooth. There is a prior uterine scar. The right ovary has dimensions of 2.8 x 1.9 by 1.9 cm. It's Doppler flow is normal with a resistive index of 0.51. There is a 1.2 cm complex follicle cyst right ovary. There are tiny echogenic foci in the right ovary. These are not felt to be significant. The left ovary dimensions are normal as well at 2.9 x 1.9 x 2.0 cm. There are tiny echogenic foci visible in the left ovary. No ovarian mass or significant cyst seen. IMPRESSION: Uterine scar seen. No other significant abnormality. <Electronically signed by Florian Zuleta > 02/02/20 0082
== END ==
LOC: M WHC 11:02
PROVIDERS: ATTEND Obstetrics & Gynecology
DX: Z12.31 Encounter for screening mammogram for malignant neoplasm of breast (principal); N93.9 Abnormal uterine and vaginal bleeding, unspecified

== ENCOUNTER → 2020-02-07 | Outpatient (REF) | payer OTHER ==
[2020-02-07 18:12] LABS: HEPATITIS A ANTIBODY IGM NEGATIVE (NEGATIVE); HEPATITIS B CORE ANTIBODY IGM NEGATIVE (NEGATIVE); HEPATITIS B SURFACE ANTIGEN NEGATIVE (NEGATIVE); HEPATITIS C VIRUS ABY INDEX 0.2 INDEX (<0.8); HIV 1&2 SCREEN CENTAUR NEGATIVE (NEGATIVE)
== END ==
LOC: M SFHCADAM 13:41 → M PLALAB 13:41
PROVIDERS: ATTEND Obstetrics & Gynecology
DX: Z11.3 Encounter for screening for infections with a predominantly sexual mode of transmission (principal)

== ENCOUNTER → 2020-03-19 | Outpatient (REF) | payer OTHER | LOC: M SFHCWAGY 18:19 | PROVIDERS: ATTEND Obstetrics & Gynecology | DX: R87.612 Low grade squamous intraepithelial lesion on cytologic smear of cervix (LGSIL) (principal) ==

== ENCOUNTER → 2020-05-10 | Outpatient (REF) | payer OTHER | LOC: M SFHCWAGY 17:21 | PROVIDERS: ATTEND Obstetrics & Gynecology | DX: N93.9 Abnormal uterine and vaginal bleeding, unspecified (principal) ==

== ENCOUNTER → 2020-05-24 | Outpatient (CLI) | payer OTHER ==
[~2020-05-24] MED LIST changes: +ARIP1TAB PO; +FLUO40CA PO
== END ==
LOC: M LABSMTC 09:44
PROVIDERS: ATTEND Anesthesiology
DX: Z01.812 Encounter for preprocedural laboratory examination (principal); Z20.822 Contact with and (suspected) exposure to COVID-19

== ENCOUNTER 2020-05-29 08:05 | Day surgery (SDC) | payer OTHER ==
[~2020-05-29] VITALS: Ht 172.7 cm; Wt 98.9 kg
[~2020-05-29 08:05] MED LIST changes: +LR 1,000 ML IV ONE; +ceFAZolin SOD 2 GM in IV 1 EA IV ONE
[2020-05-29 08:50] LABS: HEMATOCRIT 41.6 % (36.0-47.0); HEMOGLOBIN 13.3 g/dl (12.0-15.5); MEAN CORPUSCULAR HEMOGLOBIN 30.5 pg (27.0-33.0); MEAN CORPUSCULAR VOLUME 95.4 fl (80.0-96.0); PLATELET COUNT, AUTOMATED 397 10^3/uL (150-450); RED BLOOD COUNT 4.36 10^6/uL (4.00-5.40); WHITE BLOOD COUNT 10.5 10^3/uL (4.0-10.0)
[2020-05-29] MEDS ORDERED: FLUoxetine 20 MG CAP PO SCH (09:00)
[2020-05-29] MEDS ORDERED: SCOPOLAMINE 1MG TRANSDERMAL PATCH TOP ONE (09:00)
[2020-05-29] MEDS ORDERED: MIDAZOLAM INJ 2MG/2ML VIAL (J2250 PER 1MG) As Ordered ONE (09:13)
[2020-05-29] MEDS ORDERED: ONDANSETRON 4MG/2ML VIAL As Ordered ONE (09:13)
[2020-05-29] MEDS ORDERED: fentaNYL 100 MCG/2 ML INJECTION (J3010) As Ordered ONE ×2 (09:13→13:15)
[2020-05-29] MEDS ORDERED: propofoL 200 MG/20 ML VIAL As Ordered ONE (09:13)
[2020-05-29] MEDS ORDERED: dexameTHASONE 4 MG/ML 1ML VIAL (J1100 PER 1MG) As Ordered ONE (09:13)
[2020-05-29] MEDS ORDERED: ACETAMINOPHEN 1000MG 100ML IV BTL (OFIRMEV) (J0131 PER 10MG) As Ordered ONE (09:13)
[2020-05-29] MEDS ORDERED: KETOROLAC 60MG 2ML VIAL As Ordered ONE (09:13)
[2020-05-29] MEDS ORDERED: SUGAMMADEX SODIUM 500 MG/5 ML VIAL (BRIDION) As Ordered ONE (09:13)
[2020-05-29] MEDS ORDERED: ROCURONIUM BROMIDE 50 MG/5 ML VIAL As Ordered ONE (09:14)
[2020-05-29] MEDS ORDERED: LIDOCAINE 2% 100MG/5ML SDV (FOR ANES.) As Ordered ONE (09:14)
[2020-05-29 09:25] LABS: HCG, SERUM QUALITATIVE NEGATIVE (NEGATIVE)
[2020-05-29] MEDS ORDERED: METHYLENE BLUE 0.5% (5MG/ML) 10 ML AMP (PROVAYBLUE) As Ordered ONE (10:30)
[2020-05-29] MEDS ORDERED: BUPIVACAINE HCL 0.25% 30ML VIAL As Ordered ONE (10:30)
[2020-05-29] MEDS ORDERED: HYDROmorphone HCL 2 MG/ML 1ML VIAL (J1170) As Ordered ONE (11:35)
[2020-05-29] MEDS ORDERED: LR 1,000 ML IV SCH ×2 (13:00→13:25)
[2020-05-29] MEDS ORDERED: ONDANSETRON 4MG/2ML VIAL IV PRN ×2 (13:00→13:25)
[2020-05-29] MEDS ORDERED: PERCOCET 5MG/325MG TAB PO PRN ×2 (13:00)
--- NOTE | 2020-05-29 13:01 | ROOPDOC ---
[facility] Report Of Operation Report of Operation DATE OF PROCEDURE: 05/29/2020 PREPROCEDURE DIAGNOSES: Abnormal uterine bleeding, chronic pelvic pain. POSTPROCEDURE DIAGNOSES: Same. Left ovarian cyst, pelvic adhesive disease PROCEDURE: Robotic-assisted total laparoscopic hysterectomy, bilateral salpingectomy, left ovarian cystectomy, lysis of adhesions cystoscopy SURGEON: Isela Gonzalez D.O. FACOG KEYBOARD INSTRUMENT REPAIRER: Maricarmen Lee ANESTHESIA: General endotracheal. ESTIMATED BLOOD LOSS: Approximately, 75 mL. FLUIDS REPLACED: 700 mL LR URINE OUTPUT: 500 mL COMPLICATIONS: None. FINDINGS: Normal-appearing ovaries bilaterally with the exception of a benign- appearing left ovarian cyst measuring 4 cm. Uterus was approximately 10 centimeters in greatest dimension. Cystoscopy: Bilateral ureteral orifice efflux, no bladder injury/suture material. PREOPERATIVE ANTIBIOTIC PROPHYLAXIS: Ancef 2 g IV 1. SPECIMEN(S): Uterus w/ cervix, bilateral fallopian tubes DESCRIPTION OF PROCEDURE: The patient was counseled, consented on the respective benefits, indications, alternatives of procedure. Informed consent was obtained. She was taken to the operating room with an IV running. She was placed on the operating table in dorsal supine position. Gen. anesthesia was administered and the airway was secured without any difficulty. She was placed in the low lithotomy position. . She was prepared and draped in the normal sterile fashion. A time out was performed per protocol. A Gomez catheter was placed under sterile conditions. A sterile speculum was placed resulting in good visualization of the cervix. A single-tooth tenaculum was used to grasp the anterior lip cervix. The cervix was sequentially dilated with Catracho dilators. A V-Care uterine manipulator was placed without any difficulty. The single-tooth tenaculum was removed, as well as the speculum. A sterile glove switch was performed. Attention was turned to the abdomen. A 2mm incision was made in the umbilicus, and through this incision a Veress needle was inserted into the intraperitoneal cavity. Intraperitoneal placement was confirmed with ease of flow of normal saline, positive drop test, no return on aspiration, and an opening pressure of less than 10 mmHg upon initial insufflation. The abdomen was insufflated with 2 L of gas. The Veress needle was removed. A supraumbilical 8 mm incision was made. Through this incision, the robotic trochar/cannula was inserted into the intraperitoneal cavity under direct visualization. No incidental bleeding nor injury was noted. Patient was placed in 30 Trendelenburg. The right and left trocars/cannulas were placed on both the right and left side through 8 mm incisions, guided by laparoscopic visualization. No incidental bleeding nor injury was noted. The robot was docked in typical fashion. The instruments were inserted, guided by laparoscopic visualization. My attention was turned to the robotic console. Using the vessel sealer device, the right and left fallopian tubes were amputated. The fallopian tubes were brought through the assist-port cannula without any difficulty. The right utero-ovarian ligament and right round ligament were sequentially clamped, coagulated and transected with the vessel sealer device. The vesicouterine peritoneum was dissected with the vessel sealer device to create the bladder flap, thus mobilizing the lower uterine segment and cervix off of the bladder. The right uterine vasculature was sequentially clamped, coagulated and transected above the colpotomy cup. The left utero-ovarian ligament and left round ligament were sequentially clamped, coagulated and transected with the ves milagros sealer device. The remainder of the bladder flap was dissected using the vessel sealer device and blunt dissection. The left uterine vasculature was sequentially clamped, coagulated and transected above the colpotomy cup. The outline of the entire V- care colpotomy cup was able to be delineated. Excellent blanching of the uterus was noted. A circumferential colpotomy was pe rformed using the da Evan monopolar amber, following the contour of the cup. The amputated cervix and uterus were brought through the colpotomy into and out of the vagina, intact as one unit. The left ovarian cyst was then excised with the monopolar amber and blunt dissection. The smooth cystic wall was incidentally ruptured productive of clear serous fluid and removed through one of the cannulas. This was sent to pathology for permanent section. The colpotomy was closed with the V-lock barbed suture in running fashion, thus creating the vaginal cuff. Excellent hemostasis was noted throughout the steps above. Nevaeh was placed over the vaginal cuff to ensure hemostasis. The instruments were removed from the abdomen and the robot was un-docked. The gas was released from the abdomen and the patient was taken out of Trendelenburg. I re-scrubbed, and attention was turned to the pelvis. The Gomez catheter was removed. The cystoscope was placed transurethrally into the bladder and normal saline was instilled. No bladder injury/suture material was noted. IV methylene blue had been administered by anesthesia and bilateral UO efflux was confirmed. The fluid was drained out of the bladder through the cystoscope device, then the cystoscope was removed. The vagina was copiously irrigated. A sterile digital vaginal exam revealed no significant bleeding and an intact vaginal cuff. A sterile glove switch was performed. The da Evan cannulas were removed. The skin incisions were closed with 4-0 Monocryl in subcuticular fashion. Sponge, needle and instrument counts were correct per protocol. The patient tolerated the entire procedure very well. She was transferred to the PACU in good and stable condition. Isela Gonzalez DO [facility] [place] ISELA GONZALEZ DO May 29, 2020 13:01
[2020-05-29] MEDS ORDERED: DOK1CAP7 PO (13:02)
[2020-05-29] MEDS ORDERED: IBUP80TA PO (13:02)
[2020-05-29] MEDS ORDERED: PERCOCET PO (13:02)
[2020-05-29] MEDS: fentaNYL 100 MCG/2 ML INJECTION (J3010) IV PRN ×4 (13:15→13:46)
[2020-05-29] MEDS ORDERED: MEPERIDINE INJ 25 MG/ML VIAL (J2175) IV PRN (13:25)
[2020-05-29] MEDS ORDERED: METOCLOPRAMIDE INJ 10MG/2ML VIAL (J2765 PER 1) IV PRN (13:25)
[2020-05-29] MEDS ORDERED: oxyCODONE 5MG TAB PO PRN (13:25)
[2020-05-29] MEDS ORDERED: ARIPiprazole 10 MG TAB PO SCH (14:00)
[2020-05-29 14:45] VITALS: BP 102/64
[2020-05-29 15:15] VITALS: BP 102/61
[2020-05-29 15:45] VITALS: BP 114/65
[2020-05-29] MEDS ORDERED: KETOROLAC 30 MG/ML 1ML VIAL IV SCH (16:00)
[2020-05-29 16:45] VITALS: BP 113/67
[2020-05-29 17:45] VITALS: BP 110/68
[2020-05-29] MEDS ORDERED: DOCUSATE SODIUM 100MG CAPSULE PO SCH (21:00)
[2020-05-30] MEDS ORDERED: IBUPROFEN 800 MG TAB PO SCH (18:00)
== END 2020-05-29 18:40 | disposition home or self-care (01) ==
LOC: M SDC 08:05 → M PED 14:45 → M SDC 18:40
PROVIDERS: ATTEND Obstetrics & Gynecology
DX: N93.9 Abnormal uterine and vaginal bleeding, unspecified (principal); N87.9 Dysplasia of cervix uteri, unspecified; R10.2 Pelvic and perineal pain; F41.9 Anxiety disorder, unspecified; F32.9 Major depressive disorder, single episode, unspecified; Z79.899 Other long term (current) drug therapy
CPT/HCPCS: 36415; 58571; 58662; 84703; 85027; 86850; 86900; 86901; 88305; 88307; J0131; J0690; J1100; J1170; J1885; J2250; J2405; J3010; Q9968; S2900

== ENCOUNTER → 2021-08-06 | Outpatient (CLI) | payer OTHER ==
[~2021-08-06] MED LIST changes: +ARIP10TA32 PO; -ARIP1TAB PO; +DOK1CAP4 PO; -LR 1,000 ML IV ONE; +PERCOCET PO; -ceFAZolin SOD 2 GM in IV 1 EA IV ONE
== END ==
LOC: M WHC 13:44
PROVIDERS: ATTEND Nurse Practitioner Family
DX: Z13.29 Encounter for screening for other suspected endocrine disorder (principal); Z83.49 Family history of other endocrine, nutritional and metabolic diseases; E04.2 Nontoxic multinodular goiter; Z80.8 Family history of malignant neoplasm of other organs or systems

== ENCOUNTER → 2021-09-01 | Outpatient (REF) | payer OTHER | LOC: M LAB REF 17:16 | PROVIDERS: ATTEND Internal Medicine Endocrinology, Diabetes & Metabolism | DX: E04.2 Nontoxic multinodular goiter (principal) ==

== ENCOUNTER → 2022-02-19 | Outpatient (CLI) | payer OTHER | LOC: M RAD 14:00 | PROVIDERS: ATTEND Obstetrics & Gynecology | DX: R10.2 Pelvic and perineal pain (principal) ==

== ENCOUNTER → 2022-03-03 | Outpatient (REF) | payer OTHER ==
[2022-03-03 13:45] LABS: CHOLESTEROL RISK RATIO 3.71 (<5); HDL CHOLESTEROL 47.9 MG/DL (>40); LDL CHOLESTEROL 116.9 MG/DL (<100)
== END ==
LOC: M LAB REF 12:24
PROVIDERS: ATTEND Nurse Practitioner Family
DX: R79.89 Other specified abnormal findings of blood chemistry (principal)

== ENCOUNTER → 2022-03-10 | Outpatient (REF) | payer OTHER ==
[2022-03-10 13:01] LABS: BASO # 0.1 10^3/uL (0.0-0.2); BASO % 1.1 % (0.0-1.0); EOS # 0.1 10^3/uL (0.0-0.5); EOS % 1.4 % (0.0-3.0); HEMATOCRIT 42.7 % (36.0-47.0); HEMOGLOBIN 13.7 g/dl (12.0-15.5); LYMPH # 2.2 10^3/uL (1.5-5.0); MEAN CORPUSCULAR HEMOGLOBIN 30.2 pg (27.0-33.0); MEAN CORPUSCULAR HGB CONC 32.1 g/dl (32.0-36.5); MEAN CORPUSCULAR VOLUME 94.3 fl (80.0-96.0); MONO % 9.7 % (2.0-8.0); NEUTROPHILS # 6.7 10^3/uL (1.5-8.5); NEUTROPHILS % 65.4 % (36.0-66.0); PLATELET COUNT, AUTOMATED 425 10^3/uL (150-450); RED BLOOD COUNT 4.53 10^6/uL (4.00-5.40); WHITE BLOOD COUNT 10.3 10^3/uL (4.0-10.0)
[2022-03-10 13:26] LABS: ALBUMIN 3.5 G/DL (3.2-5.2); ALKALINE PHOSPHATASE 49 U/L (46-116); ALT/SGPT < 9 U/L (7.0-40); AST/SGOT 12 U/L (<34); BILIRUBIN,TOTAL 0.4 MG/DL (0.3-1.2); BLOOD UREA NITROGEN 11 MG/DL (9-23); CALCIUM LEVEL 9.1 MG/DL (8.5-10.1); CARBON DIOXIDE LEVEL 27 MMOL/L (20-31); CHLORIDE LEVEL 103 MMOL/L (98-107); CHOLESTEROL LEVEL 159 MG/DL (<200); CHOLESTEROL RISK RATIO 3.01 (<5); GLOMERULAR FILTRATION RATE > 60.0 (>58); GLUCOSE, FASTING 89 MG/DL (60-100); HDL CHOLESTEROL 52.7 MG/DL (>40); LDL CHOLESTEROL 93.1 MG/DL (<100); NON-HDL-C 106 MG/DL; POTASSIUM SERUM 5.3 MMOL/L (3.5-5.1); SODIUM LEVEL 137 MMOL/L (136-145); TOTAL PROTEIN 6.4 G/DL (5.7-8.2); TRIGLYCERIDES LEVEL 66 MG/DL (<150)
[2022-03-10 13:28] LABS: THYROID STIMULATING HORMONE 0.983 uIU/ML (0.55-4.78)
== END ==
LOC: M LAB REF 12:07
PROVIDERS: ATTEND Nurse Practitioner Family
DX: Z13.228 Encounter for screening for other metabolic disorders (principal)

== ENCOUNTER → 2022-03-18 | Outpatient (CLI) | payer OTHER | LOC: M RAD 14:13 | PROVIDERS: ATTEND Nurse Practitioner Family | DX: R10.31 Right lower quadrant pain (principal); D73.4 Cyst of spleen; K42.9 Umbilical hernia without obstruction or gangrene; R19.09 Other intra-abdominal and pelvic swelling, mass and lump ==

== ENCOUNTER → 2022-04-06 | Outpatient (CLI) | payer OTHER | LOC: M WHC 12:37 | PROVIDERS: ATTEND Nurse Practitioner Family | DX: R10.31 Right lower quadrant pain (principal) ==

== ENCOUNTER → 2022-04-17 | Outpatient (CLI) | payer OTHER ==
[~2022-04-17] MED LIST changes: +DRIS50003 PO; +LAMO200T3 PO; +LIDOCAINE 1% MDV 20ML VIAL As Ordered ONE; +RISP-8 PO; +TERB250T91 PO; +TROS20TA3 PO
[2022-04-17 12:28] VITALS: BP 116/63
== END ==
LOC: M IRPRO 10:14
PROVIDERS: ATTEND Surgery
DX: D48.1 Neoplasm of uncertain behavior of connective and other soft tissue (principal)

== ENCOUNTER → 2022-05-20 | Outpatient (CLI) | payer OTHER ==
[~2022-05-20] MED LIST changes: -LIDOCAINE 1% MDV 20ML VIAL As Ordered ONE
== END ==
LOC: M LABSMTC 10:59
PROVIDERS: ATTEND Anesthesiology
DX: Z01.812 Encounter for preprocedural laboratory examination (principal); Z20.822 Contact with and (suspected) exposure to COVID-19

== ENCOUNTER 2022-05-25 13:37 | Day surgery (SDC) | payer OTHER ==
[~2022-05-25] VITALS: Ht 172.7 cm; Wt 99.8 kg
[~2022-05-25 13:37] MED LIST changes: +ceFAZolin SOD 2 GM in IV 1 EA IV ONE
[2022-05-25] MEDS ORDERED: LR 1,000 ML IV SCH (13:55)
[2022-05-25] MEDS ORDERED: propofoL 200 MG/20 ML VIAL As Ordered ONE (14:13)
[2022-05-25] MEDS ORDERED: ONDANSETRON 4MG 2ML VIAL As Ordered ONE (14:13)
[2022-05-25] MEDS ORDERED: LIDOCAINE 2% 100MG/5ML SDV (FOR ANES.) As Ordered ONE (14:13)
[2022-05-25] MEDS ORDERED: ROCURONIUM BROMIDE 50MG/5ML VIAL As Ordered ONE (14:13)
[2022-05-25] MEDS ORDERED: MIDAZOLAM INJ 2MG/2ML VIAL As Ordered ONE (14:14)
[2022-05-25] MEDS ORDERED: fentaNYL 100 MCG/2 ML INJECTION As Ordered ONE ×2 (14:14→17:27)
[2022-05-25] MEDS ORDERED: KETAMINE HCL 200MG/20ML VIAL As Ordered ONE (15:27)
[2022-05-25] MEDS ORDERED: KETOROLAC 60MG 2ML VIAL As Ordered ONE (16:58)
[2022-05-25] MEDS ORDERED: LIDOCAINE W/EPINEPHRINE 1% 20ML VIAL As Ordered ONE (17:02)
[2022-05-25] MEDS ORDERED: ACETAMINOPHEN 1000MG 100ML IV BAG As Ordered ONE (17:10)
[2022-05-25] MEDS ORDERED: MORPHINE 2 MG/ML 1ML VIAL IV PRN (18:10)
[2022-05-25] MEDS ORDERED: fentaNYL 100 MCG/2 ML INJECTION IV PRN (18:10)
[2022-05-25] MEDS ORDERED: oxyCODONE 5MG TAB PO PRN (18:10)
[2022-05-25] MEDS ORDERED: ONDANSETRON 4MG 2ML VIAL IV PRN (18:10)
[2022-05-25] MEDS ORDERED: NORCO, ANEXSIA 5/325MG TABLET (HYDROcodone/ACETAMINOPHEN) PO PRN (18:20)
[2022-05-25 19:03] VITALS: BP 117/69
== END 2022-05-25 19:13 | disposition home or self-care (01) ==
LOC: M SDC 13:37
PROVIDERS: ATTEND Surgery
DX: N80.C11 Endometriosis of the anterior abdominal wall, fascia and muscular layers (principal); E04.1 Nontoxic single thyroid nodule; F31.9 Bipolar disorder, unspecified; F41.9 Anxiety disorder, unspecified; F32.A Depression, unspecified; F12.10 Cannabis abuse, uncomplicated; F17.210 Nicotine dependence, cigarettes, uncomplicated; Z79.899 Other long term (current) drug therapy
CPT/HCPCS: 49203; 88305; J0131; J1100; J1885; J2250; J2405; J3010

== ENCOUNTER → 2022-06-30 | Outpatient (REF) | payer OTHER ==
[~2022-06-30] MED LIST changes: -ceFAZolin SOD 2 GM in IV 1 EA IV ONE
[2022-06-30 15:00] LABS: ALBUMIN 3.3 G/DL (3.2-5.2); ALKALINE PHOSPHATASE 41 U/L (46-116); ALT/SGPT 10 U/L (7.0-40); AST/SGOT 10 U/L (<34); BILIRUBIN,TOTAL 0.3 MG/DL (0.3-1.2); BLOOD UREA NITROGEN 14 MG/DL (9-23); CALCIUM LEVEL 9.1 MG/DL (8.5-10.1); CARBON DIOXIDE LEVEL 28 MMOL/L (20-31); CHLORIDE LEVEL 108 MMOL/L (98-107); CREATININE FOR GFR 0.89 MG/DL (0.55-1.30); GLOMERULAR FILTRATION RATE > 60.0 (>58); GLUCOSE, FASTING 87 MG/DL (60-100); POTASSIUM SERUM 4.9 MMOL/L (3.5-5.1); SODIUM LEVEL 141 MMOL/L (136-145); TOTAL PROTEIN 5.8 G/DL (5.7-8.2)
== END ==
LOC: M LAB REF 12:43
PROVIDERS: ATTEND Nurse Practitioner Family
DX: Z13.228 Encounter for screening for other metabolic disorders (principal)

== ENCOUNTER → 2022-12-15 | Outpatient (CLI) | payer OTHER | LOC: M WHC 09:35 | PROVIDERS: ATTEND Nurse Practitioner Family | DX: Z12.31 Encounter for screening mammogram for malignant neoplasm of breast (principal) ==

== ENCOUNTER → 2023-01-26 | Outpatient (CLI) | payer OTHER | LOC: M RAD 06:38 | PROVIDERS: ATTEND Nurse Practitioner Family | DX: D73.4 Cyst of spleen (principal) ==

== ENCOUNTER 2023-02-19 07:41 | Day surgery (SDC) | payer OTHER ==
[~2023-02-19] VITALS: Ht 172.7 cm; Wt 84.4 kg
[~2023-02-19 07:41] MED LIST changes: +LAMO100T80 PO; +NS 1,000 ML IV ONE; +RISP0.5T21 PO
[2023-02-19] MEDS ORDERED: LIDOCAINE 2% 100MG/5ML SDV (FOR ANES.) As Ordered ONE (09:19)
[2023-02-19] MEDS ORDERED: propofoL 200 MG/20 ML VIAL As Ordered ONE ×2 (09:19→09:27)
[2023-02-19 09:30] VITALS: TEMP 97.4
[2023-02-19] MEDS ORDERED: ONDANSETRON 4MG 2ML VIAL IV STA (09:45)
[2023-02-19 10:44] VITALS: BP 142/81; O2SAT 100
== END 2023-02-19 10:45 | disposition home or self-care (01) ==
LOC: M OPP 07:41
PROVIDERS: ATTEND Surgery
DX: Z12.11 Encounter for screening for malignant neoplasm of colon (principal); Z80.0 Family history of malignant neoplasm of digestive organs; D12.6 Benign neoplasm of colon, unspecified; K64.1 Second degree hemorrhoids; F17.200 Nicotine dependence, unspecified, uncomplicated; Z79.899 Other long term (current) drug therapy
CPT/HCPCS: 45385; 88305; J2405

== ENCOUNTER → 2023-06-01 | Outpatient (REF) | payer OTHER ==
[~2023-06-01] MED LIST changes: -NS 1,000 ML IV ONE; +RISP-105 PO; -RISP-8 PO
[2023-06-01 13:14] LABS: BASO # 0.1 10^3/uL (0.0-0.2); BASO % 0.7 % (0.0-1.0); EOS # 0.2 10^3/uL (0.0-0.5); EOS % 1.3 % (0.0-3.0); HEMATOCRIT 40.5 % (36.0-47.0); HEMOGLOBIN 13.2 g/dl (12.0-15.5); LYMPH # 2.3 10^3/uL (1.5-5.0); LYMPH % 17.8 % (24.0-44.0); MEAN CORPUSCULAR HEMOGLOBIN 31.4 pg (27.0-33.0); MEAN CORPUSCULAR HGB CONC 32.6 g/dl (32.0-36.5); MEAN CORPUSCULAR VOLUME 96.2 fl (80.0-96.0); MONO % 8.1 % (2.0-8.0); NEUTROPHILS # 9.1 10^3/uL (1.5-8.5); NEUTROPHILS % 71.3 % (36.0-66.0); PLATELET COUNT, AUTOMATED 384 10^3/uL (150-450); RED BLOOD COUNT 4.21 10^6/uL (4.00-5.40); WHITE BLOOD COUNT 12.7 10^3/uL (4.0-10.0)
[2023-06-01 13:41] LABS: ALBUMIN 3.3 G/DL (3.2-5.2); ALKALINE PHOSPHATASE 38 U/L (46-116); ALT/SGPT < 9 U/L (7.0-40); AST/SGOT < 8 U/L (<34); BILIRUBIN,TOTAL 0.5 MG/DL (0.3-1.2); BLOOD UREA NITROGEN 11 MG/DL (9-23); CALCIUM LEVEL 8.5 MG/DL (8.5-10.1); CARBON DIOXIDE LEVEL 27 MMOL/L (20-31); CHLORIDE LEVEL 107 MMOL/L (98-107); CHOLESTEROL LEVEL 154 MG/DL (<200); CHOLESTEROL RISK RATIO 3.09 (<5); CREATININE FOR GFR 0.81 MG/DL (0.55-1.30); GLOMERULAR FILTRATION RATE > 60.0 (>58); GLUCOSE, FASTING 80 MG/DL (60-100); HDL CHOLESTEROL 49.8 MG/DL (>40); LDL CHOLESTEROL 92.4 MG/DL (<100); MAGNESIUM LEVEL 1.9 MG/DL (1.8-2.4); NON-HDL-C 104.2 MG/DL; POTASSIUM SERUM 4.9 MMOL/L (3.5-5.1); SODIUM LEVEL 139 MMOL/L (136-145); TOTAL 25(OH) VITAMIN D 31.8 NG/ML (20.0-100.0); TOTAL PROTEIN 5.7 G/DL (5.7-8.2); TRIGLYCERIDES LEVEL 59 MG/DL (<150)
[2023-06-01 14:05] LABS: HEMOGLOBIN A1c 4.8 % (4.0-6.0)
== END ==
LOC: M LAB REF 12:34
PROVIDERS: ATTEND Nurse Practitioner Family
DX: E66.3 Overweight (principal); E55.9 Vitamin D deficiency, unspecified

== ENCOUNTER → 2023-06-09 | Outpatient (REF) | payer OTHER | LOC: M LAB REF 11:41 | PROVIDERS: ATTEND Nurse Practitioner Family | DX: R39.9 Unspecified symptoms and signs involving the genitourinary system (principal) ==

== ENCOUNTER 2023-08-21 11:21 | Emergency (ER) | payer OTHER ==
[~2023-08-21] VITALS: Ht 172.7 cm; Wt 80.2 kg
[2023-08-21] MEDS ORDERED: EFFE150C3 PO (11:27)
[2023-08-21 12:06] LABS: BASO # 0.1 10^3/uL (0.0-0.2); BASO % 0.9 % (0.0-1.0); EOS # 0.2 10^3/uL (0.0-0.5); EOS % 1.7 % (0.0-3.0); HEMATOCRIT 40.5 % (36.0-47.0); HEMOGLOBIN 13.5 g/dl (12.0-15.5); LYMPH # 2.1 10^3/uL (1.5-5.0); LYMPH % 21.3 % (24.0-44.0); MEAN CORPUSCULAR HEMOGLOBIN 31.2 pg (27.0-33.0); MEAN CORPUSCULAR HGB CONC 33.3 g/dl (32.0-36.5); MEAN CORPUSCULAR VOLUME 93.5 fl (80.0-96.0); MONO % 10.4 % (2.0-8.0); NEUTROPHILS # 6.4 10^3/uL (1.5-8.5); NEUTROPHILS % 64.3 % (36.0-66.0); PLATELET COUNT, AUTOMATED 363 10^3/uL (150-450); RED BLOOD COUNT 4.33 10^6/uL (4.00-5.40)
[2023-08-21 12:28] LABS: CK-MB VALUE MASS 1.9 NG/ML (<3.6)
[2023-08-21 12:30] LABS: CPK CREATINE PHOSPHOKINASE 162 U/L (34-145); MB/CK RELATIVE INDEX 1.17 (< OR =4)
[2023-08-21 12:32] LABS: THYROID STIMULATING HORMONE 1.033 uIU/ML (0.55-4.78)
[2023-08-21 12:34] LABS: HCG, SERUM QUALITATIVE NEGATIVE (NEGATIVE)
[2023-08-21 12:44] LABS: BLOOD UREA NITROGEN 14 MG/DL (9-23); CALCIUM LEVEL 9.5 MG/DL (8.5-10.1); CARBON DIOXIDE LEVEL 25 MMOL/L (20-31); CHLORIDE LEVEL 110 MMOL/L (98-107); CREATININE FOR GFR 0.71 MG/DL (0.55-1.30); GLOMERULAR FILTRATION RATE > 60.0 (>58); GLUCOSE, FASTING 95 MG/DL (60-100); POTASSIUM SERUM 4.3 MMOL/L (3.5-5.1); SODIUM LEVEL 140 MMOL/L (136-145)
[2023-08-21 12:46] LABS: FREE T4 0.98 NG/DL (0.89-1.76)
[2023-08-21 14:30] VITALS: O2SAT 98
[2023-08-21 14:31] VITALS: BP 118/68; TEMP 97.7
== END 2023-08-21 14:49 | disposition home or self-care (01) ==
LOC: M ED 11:21
DX: R42 Dizziness and giddiness (principal); F25.9 Schizoaffective disorder, unspecified; F17.200 Nicotine dependence, unspecified, uncomplicated; Z79.899 Other long term (current) drug therapy

== ENCOUNTER → 2024-05-04 | Outpatient (REF) | payer OTHER ==
[~2024-05-04] MED LIST changes: -ARIP10TA32 PO; +ARIP10TA63 PO; -CYCL5TAB PO; +CYCL5TAB4 PO; +EFFE150C3 PO
== END ==
LOC: M LAB REF 13:34
PROVIDERS: ATTEND Nurse Practitioner Family
DX: B71.9 Cestode infection, unspecified (principal)

== ENCOUNTER → 2024-05-10 | Outpatient (REF) | payer OTHER ==
[2024-05-10 13:42] LABS: BASO # 0.1 10^3/uL (0.0-0.2); BASO % 0.8 % (0.0-1.0); EOS # 0.1 10^3/uL (0.0-0.5); EOS % 1.4 % (0.0-3.0); HEMATOCRIT 43.1 % (36.0-47.0); HEMOGLOBIN 14.1 g/dl (12.0-15.5); LYMPH # 1.7 10^3/uL (1.5-5.0); LYMPH % 18.8 % (24.0-44.0); MEAN CORPUSCULAR HEMOGLOBIN 31.5 pg (27.0-33.0); MEAN CORPUSCULAR HGB CONC 32.7 g/dl (32.0-36.5); MEAN CORPUSCULAR VOLUME 96.2 fl (80.0-96.0); MONO # 1.2 10^3/uL (0.0-0.8); MONO % 13.8 % (2.0-8.0); NEUTROPHILS # 5.7 10^3/uL (1.5-8.5); NEUTROPHILS % 64.3 % (36.0-66.0); PLATELET COUNT, AUTOMATED 334 10^3/uL (150-450); RED BLOOD COUNT 4.48 10^6/uL (4.00-5.40); WHITE BLOOD COUNT 8.9 10^3/uL (4.0-10.0)
[2024-05-10 14:08] LABS: THYROID STIMULATING HORMONE 2.115 uIU/ML (0.55-4.78)
[2024-05-10 14:09] LABS: ALBUMIN 3.6 G/DL (3.2-5.2); ALKALINE PHOSPHATASE 37 U/L (35-104); ALT/SGPT 11 U/L (7.0-40); AST/SGOT 13 U/L (<34); BILIRUBIN,TOTAL 0.5 MG/DL (0.3-1.2); BLOOD UREA NITROGEN 8 MG/DL (9-23); CALCIUM LEVEL 8.9 MG/DL (8.5-10.1); CARBON DIOXIDE LEVEL 28 MMOL/L (20-31); CHLORIDE LEVEL 108 MMOL/L (98-107); CREATININE FOR GFR 0.86 MG/DL (0.55-1.30); FREE T4 1.05 NG/DL (0.89-1.76); GLOMERULAR FILTRATION RATE > 60.0 (>58); GLUCOSE, FASTING 82 MG/DL (60-100); POTASSIUM SERUM 5.1 MMOL/L (3.5-5.1); SODIUM LEVEL 142 MMOL/L (136-145); TOTAL PROTEIN 6.3 G/DL (5.7-8.2)
== END ==
LOC: M LAB REF 12:10
PROVIDERS: ATTEND Nurse Practitioner Family
DX: E04.2 Nontoxic multinodular goiter (principal); E66.3 Overweight

== ENCOUNTER → 2024-12-29 | Outpatient (REF) | payer OTHER ==
[~2024-12-29] MED LIST changes: +LIDO1ADH93 TOP; -LIDO5DIS41 TOP
[2024-12-29 12:58] LABS: ALT/SGPT 12.0 U/L (7.0-40); AST/SGOT 17.0 U/L (<34); CALCIUM LEVEL 9.2 MG/DL (8.5-10.1); CARBON DIOXIDE LEVEL 29.0 MMOL/L (20-31); CHLORIDE LEVEL 106.0 MMOL/L (98-107); CHOLESTEROL LEVEL 197.0 MG/DL (<200); CHOLESTEROL RISK RATIO 3.4 (<5); CREATININE FOR GFR 0.9 MG/DL (0.55-1.30); GLOMERULAR FILTRATION RATE 79.4 (>58); LDL CHOLESTEROL 125.0 MG/DL (<100); NON-HDL-C 139.2 MG/DL; POTASSIUM SERUM 4.7 MMOL/L (3.5-5.1); SODIUM LEVEL 141.0 MMOL/L (136-145); TRIGLYCERIDES LEVEL 71.0 MG/DL (<150)
[2024-12-29 12:59] LABS: TOTAL 25(OH) VITAMIN D 32.9 NG/ML (20.0-100.0)
[2024-12-29 13:20] LABS: ESTIMATED AVERAGE GLUCOSE 108.0 MG/DL (60-110)
== END ==
LOC: M LAB REF 12:16
PROVIDERS: ATTEND Student in an Organized Health Care Education/Training Program
DX: R19.7 Diarrhea, unspecified (principal); Z68.25 Body mass index [BMI] 25.0-25.9, adult; E55.9 Vitamin D deficiency, unspecified